=== PATIENT | female | born 1960 | race Caucasian/White ===

== ENCOUNTER → 2022-04-09 11:50 | Outpatient (BNVA) | payer OTHER, SELFPAY | PROVIDERS: PCP Registered Nurse; Visit Provider Registered Nurse | DX: I10 Essential (primary) hypertension (principal); E66.9 Obesity, unspecified; I73.9 Peripheral vascular disease, unspecified; Z76.89 Persons encountering health services in other specified circumstances | CPT/HCPCS: 80053; 80061; 85025 ==

== ENCOUNTER → 2022-10-05 08:21 | Outpatient (BNVA) | payer OTHER, SELFPAY | PROVIDERS: PCP Registered Nurse; Visit Provider Registered Nurse | DX: E55.9 Vitamin D deficiency, unspecified (principal); I10 Essential (primary) hypertension; E66.9 Obesity, unspecified; Z12.31 Encounter for screening mammogram for malignant neoplasm of breast; Z53.20 Procedure and treatment not carried out because of patient's decision for unspecified reasons | CPT/HCPCS: 80053; 80061; 82306; 85025 ==

== ENCOUNTER 2022-10-19 08:50 | Outpatient (CLI) | payer OTHER, SELFPAY ==
--- NOTE | 2022-10-19 09:09 | MM_ITS ---
WS: [id number] Bilateral screening 3D tomosynthesis digital mammogram, 10/30/2022 Clinical Data: Z12.31 - Encounter for screening mammogram for malignant ... Comparison: None. Findings: The breast parenchymal pattern shows heterogeneous density. No spiculated masses or clustered calcifi cations are seen. There are no secondary signs of carcinoma. Mole markers are on both breasts. MM/[place] [id number] Impression: 1. Negative bilateral mammogram with no prior exam for review. 2. Recommend annual screening mammograms. BIRADS: 1-Negative FOLLOW UP: 1 Year Follow-up The CAD loading checker was used.
== END 2022-10-19 08:51 | disposition home or self-care (01) ==
PROVIDERS: PCP Registered Nurse; Visit Provider Registered Nurse
DX: Z12.31 Encounter for screening mammogram for malignant neoplasm of breast (principal)
CPT/HCPCS: 77063; 77067

== ENCOUNTER 2022-11-15 13:06 | Outpatient (CLI) | payer OTHER, SELFPAY ==
--- NOTE | 2022-11-15 | US_ITS ---
WS: [id number] RIGHT 3D TOMOSYNTHESIS DIGITAL MAMMOGRAPHY WITH CAD CLINICAL INFORMATION: ABNORMAL MAMMO HISTORY: Abnormal mammogram COMPARISON: October 19, 2022 TECHNIQUE: 3 views of the right breast were obtained. FINDINGS: Scattered fibroglandular densities of the right breast. Again seen is the irregular spiculated focal asymmetric density upper outer RIGHT breast. Associated irregular margins with additional surrounding parenchymal densities and a few separate appearing small satellite nodules. Ultrasound described bel ow. ULTRASOUND BREAST RIGHT TECHNIQUE: Ultrasound right breast focused area of concern. CLINICAL INFORMATION: Abnormal mammo/ mass of calcs COMPARISON: October 19, 2022 FINDINGS: Ultrasound RIGHT breast 10:00 position 3 cm from the nipple. There is a spiculated hypoechoic lesion taller than wide. This measures approximately 1.1 x 0.7 x 1.6 cm suspicious for carcinoma. Irregular borders with adjacent smaller separate subcutaneous nodule measuring 3.0 x 4.4 x 2.4 mm. Recommend ul trasound guided biopsy both of these lesions. Ultrasound RIGHT axilla also examined. Numerous lymph nodes with normal fatty hilum. Single lymph nod e with distortion of the fatty hilum measuring 10 mm is probably normal but can be re-evaluated when patient returns for biopsy. No other suspicious lymphadenopathy. US/US breast RT limited* [id number] IMPRESSION: BI-RADS 4 suspicious FOLLOW UP: Recommend Ultrasound-guided biopsy. Recommend ultrasound-guided biopsy of the 2 lesions at the 10:00 position 3 cm from the nipple RIGHT breast Also recommend re-evaluation RIGHT axilla when patient returns for breast biops y.
--- NOTE | 2022-11-15 14:49 | MM_ITS ---
WS: [id number] RIGHT 3D TOMOSYNTHESIS DIGITAL MAMMOGRAPHY WITH CAD CLINICAL INFORMATION: ABNORMAL MAMMO HISTORY: Abnormal mammogram COMPARISON: October 19, 2022 TECHNIQUE: 3 views of the right breast were obtained. FINDINGS: Scattered fibroglandular densities of the right breast. Again seen is the irregular spiculated focal asymmetric density upper outer RIGHT breast. Associated irregular margins with additional surrounding parenchymal densities and a few separate appearing small satellite nodules. Ultrasound described bel ow. ULTRASOUND BREAST RIGHT TECHNIQUE: Ultrasound right breast focused area of concern. CLINICAL INFORMATION: Abnormal mammo/ mass of calcs COMPARISON: October 19, 2022 FINDINGS: Ultrasound RIGHT breast 10:00 position 3 cm from the nipple. There is a spiculated hypoechoic lesion taller than wide. This measures approximately 1.1 x 0.7 x 1.6 cm suspicious for carcinoma. Irregular borders with adjacent smaller separate subcutaneous nodule measuring 3.0 x 4.4 x 2.4 mm. Recommend ul trasound guided biopsy both of these lesions. Ultrasound RIGHT axilla also examined. Numerous lymph nodes with normal fatty hilum. Single lymph nod e with distortion of the fatty hilum measuring 10 mm is probably normal but can be re-evaluated when patient returns for biopsy. No other suspicious lymphadenopathy. MM/[place] [id number] IMPRESSION: BI-RADS 4 suspicious FOLLOW UP: Recommend Ultrasound-guided biopsy. Recommend ultrasound-guided biopsy of the 2 lesions at the 10:00 position 3 cm from the nipple RIGHT breast Also recommend re-evaluation RIGHT axilla when patient returns for breast biops y.
== END 2022-11-15 13:07 | disposition home or self-care (01) ==
LOC: RAD 13:08
PROVIDERS: PCP Registered Nurse; Visit Provider Registered Nurse
DX: R92.8 Other abnormal and inconclusive findings on diagnostic imaging of breast (principal); N63.11 Unspecified lump in the right breast, upper outer quadrant
CPT/HCPCS: 76642; 77061; G0279

== ENCOUNTER 2022-11-29 11:51 | Outpatient (CLI) | payer OTHER, SELFPAY ==
--- NOTE | 2022-11-29 | US_ITS ---
WS: [id number] ULTRASOUND-GUIDED RIGHT BREAST BIOPSY CLINICAL INFORMATION: N63.10 - Unspecified lump in the right breast, unspecifie... COMPARISON: November 15, 2022 FINDINGS: The procedure including risks, benefits, and complications were discussed with the patient who agreed to proceed. Using sterile technique patient was prepped and draped in the usual sterile fashion. Aft er 1% lidocaine utilizing real-time ultrasound guidance 5 14-gauge cores were obtained of the RIGHT b reast lesion at the 10 o'clock position. Subsequently a titanium clip was placed in the biopsy cavity . Subsequently additional biopsy was performed of a 2nd small solid satellite lesion at the 10:00 posit ion. 3 samples were obtained. Titanium clip was placed in the biopsy cavity. Next largest proximal lymph node was selected in the RIGHT axilla and 3 samples were obtained. Biopsy clip was placed in the biopsy cavity. Pathology demonstrates A. Breast, right, 10 o'clock, 3 cm from nipple, ultrasound-guided biopsy: - Poorly differentiated invasive ductal carcinoma. - Renae Hastings grade 3 (score 9). - Breast profile has been performed and will be reported separately. B. Breast, right, 10 o'clock, 3 cm from nipple #2, ultrasound-guided biopsy: - Invasive ductal carcinoma. - Renae Hastings grade 2 (score 7). - Breast profile has been performed and will be reported separately. C. Lymph node, right axilla , ultrasound-guided biopsy: - Negative for malignancy. US/[place] [id number] IMPRESSION: 1. Uncomplicated ultrasound-guided RIGHT breast biopsy and axillary biopsy. 2. The pathology demonstrates POORLY DIFFERENTIATED INVASIVE DUCTAL CARCINOMA corresponding to the primary lesion and satellite lesion at the 10:00 position 3 cm from the nipple. 3. RIGHT axillary lymph node biopsy is negative for malignancy. 4. Recommend BREAST SURGERY consultation in further evaluation. BI-RADS: 6-Known Biopsy-Proven Malignancy FOLLOW UP: Surgical Biopsy Recommended
--- NOTE | 2022-11-29 12:30 | US_ITS ---
WS: [id number] ULTRASOUND-GUIDED RIGHT BREAST BIOPSY CLINICAL INFORMATION: N63.10 - Unspecified lump in the right breast, unspecifie... COMPARISON: November 15, 2022 FINDINGS: The procedure including risks, benefits, and complications were discussed with the patient who agreed to proceed. Using sterile technique patient was prepped and draped in the usual sterile fashion. Aft er 1% lidocaine utilizing real-time ultrasound guidance 5 14-gauge cores were obtained of the RIGHT b reast lesion at the 10 o'clock position. Subsequently a titanium clip was placed in the biopsy cavity . Subsequently additional biopsy was performed of a 2nd small solid satellite lesion at the 10:00 posit ion. 3 samples were obtained. Titanium clip was placed in the biopsy cavity. Next largest proximal lymph node was selected in the RIGHT axilla and 3 samples were obtained. Biopsy clip was placed in the biopsy cavity. Pathology demonstrates A. Breast, right, 10 o'clock, 3 cm from nipple, ultrasound-guided biopsy: - Poorly differentiated invasive ductal carcinoma. - Renae Hastings grade 3 (score 9). - Breast profile has been performed and will be reported separately. B. Breast, right, 10 o'clock, 3 cm from nipple #2, ultrasound-guided biopsy: - Invasive ductal carcinoma. - Renae Hastings grade 2 (score 7). - Breast profile has been performed and will be reported separately. C. Lymph node, right axilla , ultrasound-guided biopsy: - Negative for malignancy. US/[place] [id number] IMPRESSION: 1. Uncomplicated ultrasound-guided RIGHT breast biopsy and axillary biopsy. 2. The pathology demonstrates POORLY DIFFERENTIATED INVASIVE DUCTAL CARCINOMA corresponding to the primary lesion and satellite lesion at the 10:00 position 3 cm from the nipple. 3. RIGHT axillary lymph node biopsy is negative for malignancy. 4. Recommend BREAST SURGERY consultation in further evaluation. BI-RADS: 6-Known Biopsy-Proven Malignancy FOLLOW UP: Surgical Biopsy Recommended
[2022-11-30 15:25] LABS: Lymphoma Profile (BBPL) See Report
[2022-12-05 06:08] LABS: Breast Profile ER,PR,HER2,Ki-6 See Report
== END 2022-11-29 11:52 | disposition home or self-care (01) ==
PROVIDERS: PCP Registered Nurse; Visit Provider Registered Nurse
DX: C50.411 Malignant neoplasm of upper-outer quadrant of right female breast (principal); R59.0 Localized enlarged lymph nodes
CPT/HCPCS: 19083; 19084; 38505; 76942; 88184; 88185; 88305; 88361; 88374

== ENCOUNTER → 2022-12-03 15:48 | Outpatient (BNVA) | payer OTHER, SELFPAY | PROVIDERS: PCP Registered Nurse; Visit Provider Registered Nurse | DX: N39.0 Urinary tract infection, site not specified (principal); D05.11 Intraductal carcinoma in situ of right breast | CPT/HCPCS: 81000; 87086 ==

== ENCOUNTER 2022-12-24 15:39 | Oncology outpatient (recurring) (ONCR) | payer OTHER, SELFPAY ==
[2022-12-24 17:00] LABS: Bilirubin Urine Neg (Negative); Blood Urine Neg (Negative); Glucose Urine UA Norm (Normal); Ketones Urine Negative (Negative); Leukocyte Esterase Urine 2+ (Negative); Nitrate Urine Negative (Negative); Protein Urine Neg (Negative); Urine Appearance Hazy (CLEAR); Urine Color Yellow (Yellow); Urobilinogen Urine Norm (Negative); pH Urine 5 (5-7)
[2022-12-24 17:01] LABS: Add Urine Culture? Yes; Bacteria Urine 1+ /hpf; Transitional Epi Cells Urine 0-4 /hpf; WBC Urine 25-40 /hpf (0-5)
== END 2023-01-09 23:59 | disposition home or self-care (01) ==
PROVIDERS: PCP Registered Nurse; Visit Provider Internal Medicine Medical Oncology
DX: Z17.0 Estrogen receptor positive status [ER+]; C50.811 Malignant neoplasm of overlapping sites of right female breast; R30.0 Dysuria; Z79.2 Long term (current) use of antibiotics
CPT/HCPCS: 81001; 87077; 87086; 87186; 99205

== ENCOUNTER → 2023-02-05 12:08 | Day surgery (SDC) | payer OTHER, SELFPAY ==
--- NOTE | 2023-02-05 11:40 | XR_ITS ---
WS: [id number] Exam: XR chest 1V portable [id number] Date/Time of Exam: 02/05/2023 12:56 PM Reason For Exam: Post PICC insertion No priors. A right-sided PICC line has been placed and appears to end in the lower one third of the SVC. The abraham gs are bilaterally clear. Normal cardiomediastinal silhouette. Degenerative change and dextroscoliosi s of the T-spine. No pleural effusions. XR/XR chest 1V portable [id number] IMPRESSION: 1. Right-sided PICC line appears to end in the lower one third of the SVC. 2. No acute cardiopulmonary finding.
[2023-02-05 13:23] LABS: Basophils # 0.1 10^3/uL (0.0-0.1); Eosinophils # 0.2 10^3/uL (0.0-0.8); Eosinophils % 1.8 %; Hematocrit 43.7 % (37.0-47.0); Hemoglobin 14.7 g/dL (11.5-15.3); Mean Corpuscular HGB Conc 33.6 g/dL (30.0-36.0); Mean Corpuscular Hemoglobin 31.9 pg (28.0-34.0); Mean Corpuscular Volume 94.8 fl (81-99); Mean Platelet Volume 10.8 fL (7.4-10.4); Monocytes % 10.7 %; Neutrophils # 4.06 10^3/uL (1.8-7.7); Neutrophils % 43.2 %; Nucleated Red Blood Cells % 0 %; Platelet Count 199 10^3/cmm (130-400); Red Blood Count 4.61 10^6/uL (4.1-5.3); Red Cell Distribution Width 12.8 % (12.1-15.1); White Blood Count 9.4 10^3/uL (4.0-10.0)
[2023-02-05 13:29] VITALS: BP 125/102; PULSE 78; RESP 18; TEMP 36.8; O2SAT 96
--- NOTE | 2023-02-05 13:29 | PC.NURSE ---
Pt referral from oncology for PICC line placement for chemotherapy. Double lumen PICC placed to right basilic vein without difficulty. Mid-arm circumference measured 10 cm from right AC 42 cm. Trimmed cath length 49 cm with 1 cm external length noted. Line secured with stat lock. Insertion site covered with gauze and TSM. CXR shows tip in distal third of SVC, in good position for use per radiologist. Pt scheduled tomorrow at oncology for PICC dressing change. Report given to MAXIMILIAN Saab.
== END ==
PROVIDERS: PCP Registered Nurse; Visit Provider Internal Medicine Medical Oncology
DX: C50.411 Malignant neoplasm of upper-outer quadrant of right female breast (principal)
CPT/HCPCS: 36569; 36592; 71045; 85025

== ENCOUNTER 2023-02-07 13:31 | Outpatient (CLI) | payer OTHER, SELFPAY ==
--- NOTE | 2023-02-07 14:00 | USCV_ITS ---
Fanny Will Age: 62 Gender: F : 1960 Exam Date: 02/07/2023 14:09 Ordering Phys: Alfonso Orosco MD Technologist: ELVIA [place]am Location[place] [facility] [place]ication: HIGH RISK MEDS BP: 122 / 81 HR: 79 Rhythm: Sinus Technical Quality: Adequate MEASUREMENTS (Male / Female) Normal Values 2D ECHO LVOT Diameter 2.0 cm LV Ejection Fraction MOD 2C 56.5 % LV Ejection Fraction 2C AL 56.3 % LA Diameter 3.3 cm LA Width 2.9 cm LA Height 4.0 cm RA Width 2.2 cm RA Height 4.4 cm Aorta at Sinotubular Diameter 2.4 cm IVC Diameter 1.6 cm M-MODE Aortic Annulus Diameter 2.6 cm LA Ao Ratio MM 1.2 MV E Point Septal Separation 0.4 cm DOPPLER Right Atrial Pressure 3.0 mmHg FINDINGS Left Ventricle Right Ventricle Right Atrium Left Atrium Mitral Valve Aortic Valve Tricuspid Valve Pulmonic Valve Pericardium Aorta IVC CONCLUSIONS Left ventricle is normal in size. LV systolic function is normal with EF of 55 to 60%. No regional wall motion abnormalities. No comparison studies are available Osmel Mendes MD (Electronically Signed) Final Date: 08 February 2023 13:57 S
== END 2023-02-07 13:32 | disposition home or self-care (01) ==
LOC: RAD 13:33
PROVIDERS: PCP Registered Nurse; Visit Provider Internal Medicine Medical Oncology
DX: Z79.899 Other long term (current) drug therapy (principal)
CPT/HCPCS: 93308

== ENCOUNTER 2023-02-08 07:30 | Oncology outpatient (recurring) (ONCR) | payer OTHER, SELFPAY ==
[2023-02-06 12:40] VITALS: BP 116/79; PULSE 82; RESP 18; TEMP 37; O2SAT 96
[2023-02-06 13:16] LABS: Basophils # 0.1 10^3/uL (0.0-0.1); Eosinophils # 0.2 10^3/uL (0.0-0.8); Eosinophils % 1.8 %; Hematocrit 46.7 % (37.0-47.0); Hemoglobin 15.8 g/dL (11.5-15.3); Lymphocytes # 3.7 10^3/uL (0.8-4.8); Lymphocytes % 40.1 %; Mean Corpuscular HGB Conc 33.8 g/dL (30.0-36.0); Mean Corpuscular Hemoglobin 32.6 pg (28.0-34.0); Mean Corpuscular Volume 96.3 fl (81-99); Mean Platelet Volume 10.6 fL (7.4-10.4); Monocytes # 0.8 10^3/uL (0.2-0.9); Monocytes % 8.9 %; Neutrophils # 4.45 10^3/uL (1.8-7.7); Neutrophils % 47.8 %; Nucleated Red Blood Cells % 0 %; Platelet Count 203 10^3/cmm (130-400); Red Blood Count 4.85 10^6/uL (4.1-5.3); Red Cell Distribution Width 12.9 % (12.1-15.1); White Blood Count 9.3 10^3/uL (4.0-10.0)
[2023-02-06 13:35] LABS: Alanine Aminotransferase 31 U/L (0-33); Albumin Level 3.7 g/dL (3.5-5.2); Alkaline Phosphatase 70 U/L (35-105); Blood Urea Nitrogen 15 mg/dL (8-23); Calcium 9.3 mg/dL (8.5-10.5); Carbon Dioxide 25 mmol/L (22-29); Chloride 100 mmol/L (98-107); Globulin 3.3 g/dL (1.3-4.6); Glomerular Filtration Rate 72.7 mL/min (90-130); Glucose 102 mg/dL (65-115); Osmolality Calculated 281 mOsm/kg (285-295); Sodium 135 mmol/L (136-145); Total Bilirubin 0.4 mg/dL (0.15-1.2)
[2023-02-06 13:58] LABS: Anion Gap 14.4 (5-19); Aspartate Amino Transferase 30 U/L (0-32); Potassium 4.4 mmol/L (3.5-5.1)
[2023-02-08 07:20] VITALS: BP 127/83; PULSE 82; RESP 18; TEMP 36.3; O2SAT 98
[2023-02-08] MEDS: sodium chloride 0.9% 250 ML 100 ML IV (09:20)
[2023-02-08] MEDS: OLANZapine 5 mg TABLET PO (09:22)
[2023-02-08] MEDS: palonosetron 0.25 mg/5 mL SDV IVP (09:22)
[2023-02-08] MEDS: fosaprepitant 150 MG in sodium chloride 0.9% 150 ML 300 MG IV (09:26)
[2023-02-08] MEDS: DOXOrubicin 2 mg/ml MDV 134 MG IVP (10:41)
[2023-02-08] MEDS: pegfilgrastim 6 mg/0.6 mL Kit (onpro) SUBCUT (12:24)
[2023-02-08 12:30] VITALS: BP 97/59; PULSE 71; TEMP 36.7; O2SAT 97
== END 2023-02-08 23:59 | disposition home or self-care (01) ==
PROVIDERS: PCP Registered Nurse; Visit Provider Internal Medicine Medical Oncology
DX: C50.811 Malignant neoplasm of overlapping sites of right female breast (principal); Z17.0 Estrogen receptor positive status [ER+]; R11.0 Nausea; Z79.899 Other long term (current) drug therapy; Z51.12 Encounter for antineoplastic immunotherapy; Z51.11 Encounter for antineoplastic chemotherapy
CPT/HCPCS: 36592; 80053; 85025; 96361; 96367; 96375; 96377; 96411; 96413; 99215; J1100; J1453; J1642; J2469; J2506; J7040; J7050; J9000; J9070

== ENCOUNTER 2023-02-17 13:31 | Emergency (ER) | payer OTHER, SELFPAY ==
[2023-02-17 13:34] VITALS: BP 121/79; PULSE 90; RESP 14; TEMP 36.9; O2SAT 96
--- NOTE | 2023-02-17 15:16 | W.ED.GENADLT ---
HPI - General Adult General: Chief complaint: General Medical Stated complaint: picc line filling with blood Time Seen by Provider: 02/17/23 14:46 Source: patient Mode of arrival: ambulatory Limitations: no limitations History of Present Illness: This 62-year-old female presents to the ER for evaluation after she noticed some blood around the entry site of her PICC line. She has had the PICC line for about 2 weeks and received her first round of chemotherapy over a week ago. 2 days ago blood was drawn from the PICC line. She has no fever and there is no redness or swelling around the entry site of the PICC line. She denies trauma or a pull on the PICC line. She came to the ER to make sure that everything is fine with the PICC line. Associated symptoms: Deny chest pain or headache(s) Review of Systems Const: Denies: chills, body aches or change in appetite Eyes: Denies: change in vision or eye discharge ENMT: Denies: throat pain, dental pain or nasal discharge Card: Denies: chest pain or lightheadedness : Denies: dysuria Musc: Denies: neck pain or back pain Skin/Breast: Reports: other (Blood around the entry site of the PICC line.) Neuro: Denies: headache(s) or weakness in extremities Psych: Denies: depression Romero/Lymph: Denies: easy bruising All/Imm: Denies: urticaria, tongue swelling or facial swelling PFSH ED PFSH: Medical History History of recurrent urinary tract infection Hypertension Left sided sciatica Vitamin D deficiency Surgical History H/O right breast biopsy (11/29/22) History of section History of tonsillectomy Status post right breast lumpectomy (01/02/23) Right breast lumpectomy with axillary sentinel lymph node biopsy Family History Father Cancer Mother Diabetes CHF (congestive heart failure) Hypertension Social History Smoking and tobacco status: never smoked Alcohol intake: never Substance/Drug Use: never Adopted: No Caregiver/support person: No Lives independently: No Household members: spouse Marital status: service: No Current occupational status: retired Sexually active: Yes Do you think of yourself as: Straight/Heterosexual Current gender identity: Female Physical Exam Const: COMMON NORMALS: no acute distress, patient oriented x3, no limitations and alert HENMT: COMMON NORMALS: normocephalic HEAD & SCALP: normocephalic Eye: COMMON NORMALS: EOMs intact bilaterally Neck/C-Spine: COMMON NORMALS: full ROM and supple Chest: COMMONS NORMALS: normal inspection of the chest Resp: COMMON NORMALS: normal respiratory effort, No retractions, No use of accessory muscles and clear to auscultation bilaterally AUSCULTATION: clear to auscultation bilaterally Cardio: COMMON NORMALS: regular rate, regular rhythm and No murmurs present (Cardio) RATE: regular rate RHYTHM: regular rhythm GI: COMMON NORMALS: Normal to inspection, nondistended, normoactive bowel sounds present and non-tender : COMMON NORMALS: Yes no CVA tenderness BLADDER/KIDNEY EXAM: Yes no CVA tenderness Back/Pelvis: COMMON NORMALS: no CVA tenderness and no thoracic nor lumbar tenderness Extremity: GENERAL: Yes normal exam except as noted EXTREMITY IMAGE (FRONT): 1. Dried blood around the entry site of the PICC line. No active bleeding. No redness, swelling or tenderness to suggest an active infection. Neuro: COMMON NORMALS: patient oriented x3 and no focal motor deficits SENSORIUM/ORIENTATION: Yes alert Psych: COMMON NORMALS: mental status grossly normal and cooperative Course Vital Signs: Vital signs: Vital Signs Temperature 98.4 F 02/17/23 13:34 Pulse Rate 90 02/17/23 13:34 Respiratory Rate 14 02/17/23 13:34 Blood Pressure 121/79 02/17/23 13:34 Pulse Oximetry 96 02/17/23 13:34 Oxygen Delivery Me thod Room Air 02/17/23 13:34 MDM - General Adult Medical Decision Making Medical decision making: Patient is concerned when she noticed blood around the entry site of the PICC line. She wanted to make sure that everything was okay with the PICC line. In the absence of active bleeding or signs of infection, I reassured patient that it was best not to tamper with the PICC line but rather to contact her oncologist and PICC line team tomorrow to address her concerns. She was advised to return if she develops redness, swelling, fever or any signs of infection. Patient verbalized understanding and agrees with the plan. Discharge Plan Discharge Patient Disposition: Home Clinical Impression: Bleeding from PICC line Condition: Stable Prescriptions: No Action prochlorperazine maleate [Compazine] 10 mg tablet 10 mg PO Q4H PRN (Reason: Mild Nausea) Qty: 30 3RF lorazepam 1 mg tablet 0.5 - 1 mg PO Q6H PRN (Reason: Severe Nausea) Qty: 30 3RF ciprofloxacin HCl 500 mg tablet 500 mg PO BID Qty: 20 0RF Rx Instructions: To use for skin infection famotidine 20 mg tablet 20 mg PO BID 42 Days Qty: 84 0RF amlodipine 5 mg tablet 5 mg PO DAILY 90 Days Qty: 90 4RF cyclobenzaprine 10 mg tablet 10 mg PO ONCE PRN (Reason: sciatica pain) 90 Days Qty: 90 4RF hydrochlorothiazide 25 mg tablet 25 mg PO DAILY 90 Days Qty: 90 4RF cholecalciferol (vitamin D3) 1,250 mcg (50,000 unit) capsule 1,250 mcg PO .weekly 90 Days Qty: 12 1RF Discharge Orders: Discharge ED (Routine); Ordered 02/17/23 Ordered By: Wiliam Stubbs Referrals: Ruel Howard FNP [Primary Care Provider] - Discharge Diet: Usual diet Discharge Activity: Resume usual activity Patient Instructions: Opioid Safety, Pain Management Activity Restrictions/Additional Instructions: Currently, there is no sign of active bleeding or infectionat your PICC line. Contact your oncologist and PICC line team tomorrow to address your concerns. Return if you notice redness, swelling or increased pain around the PICC line site. Also return if you develop fever with temperature of 100.4 or more. Coding Level of Care Code ED Compliance Clerk for Laisha Hoskins
== END 2023-02-17 15:26 | disposition home or self-care (01) ==
PROVIDERS: Emergency Provider Family Medicine; PCP Registered Nurse
DX: T82.838A Hemorrhage due to vascular prosthetic devices, implants and grafts, initial encounter (principal); Y83.2 Surgical operation with anastomosis, bypass or graft as the cause of abnormal reaction of the patient, or of later complication, without mention of misadventure at the time of the procedure
CPT/HCPCS: 99282

== ENCOUNTER 2023-03-07 08:00 | Oncology outpatient (recurring) (ONCR) | payer OTHER, SELFPAY ==
[2023-02-15 08:04] VITALS: BP 137/94; PULSE 88; RESP 18; TEMP 36.8; O2SAT 97
[2023-02-15 08:19] LABS: Basophils # 0.1 10^3/uL (0.0-0.1); Basophils % 2.5 %; Eosinophils # 0.1 10^3/uL (0.0-0.8); Eosinophils % 3.5 %; Hematocrit 44.4 % (37.0-47.0); Hemoglobin 14.9 g/dL (11.5-15.3); Lymphocytes # 1.5 10^3/uL (0.8-4.8); Lymphocytes % 72.3 %; Mean Corpuscular HGB Conc 33.6 g/dL (30.0-36.0); Mean Corpuscular Volume 95.5 fl (81-99); Mean Platelet Volume 10.5 fL (7.4-10.4); Monocytes # 0.1 10^3/uL (0.2-0.9); Neutrophils % 16.7 %; Nucleated Red Blood Cells % 0 %; Platelet Count 91 10^3/cmm (130-400); Red Blood Count 4.65 10^6/uL (4.1-5.3); Red Cell Distribution Width 12.5 % (12.1-15.1)
[2023-02-15 08:42] LABS: Alanine Aminotransferase 26 U/L (0-33); Albumin Level 3.7 g/dL (3.5-5.2); Alkaline Phosphatase 97 U/L (35-105); Blood Urea Nitrogen 20 mg/dL (8-23); Calcium 9.9 mg/dL (8.5-10.5); Carbon Dioxide 25 mmol/L (22-29); Chloride 98 mmol/L (98-107); Globulin 3.2 g/dL (1.3-4.6); Glomerular Filtration Rate 84.8 mL/min (90-130); Glucose 116 mg/dL (65-115); Osmolality Calculated 280 mOsm/kg (285-295); Sodium 133 mmol/L (136-145); Total Bilirubin 0.8 mg/dL (0.15-1.2); Total Protein 6.9 g/dL (6.6-8.7)
[2023-02-15 08:50] LABS: Aspartate Amino Transferase 24 U/L (0-32)
[2023-02-15 09:09] LABS: Neutrophils # 0.34 10^3/uL (1.8-7.7); Slide Review Slide Review Perform
[2023-02-21 08:38] VITALS: BP 125/92; PULSE 85; RESP 18; TEMP 36.7; O2SAT 98
[2023-02-21 09:03] LABS: Hematocrit 43.2 % (37.0-47.0); Hemoglobin 14.3 g/dL (11.5-15.3); Mean Corpuscular HGB Conc 33.1 g/dL (30.0-36.0); Mean Corpuscular Hemoglobin 32.1 pg (28.0-34.0); Mean Corpuscular Volume 97.1 fl (81-99); Mean Platelet Volume 9.9 fL (7.4-10.4); Platelet Count 278 10^3/cmm (130-400); Red Blood Count 4.45 10^6/uL (4.1-5.3); Red Cell Distribution Width 12.8 % (12.1-15.1); White Blood Count 9.5 10^3/uL (4.0-10.0)
[2023-02-21 09:05] LABS: Slide Review Slide Review Perform
[2023-02-21 09:06] LABS: Absolute Segmented Neutrophil 7.6 10/cmm (1.6-7.1); Band Neutrophils Absolute 0.2 10^3/cmm (0.0-1.2); Blastocytes 0 % (0-0); Eosinophils 1 %; Lymphocytes 9 %; Lymphocytes Absolute 0.9 10^3/cmm (1.2-3.4); Monocytes Absolute 0.4 10^3/cmm (0.1-0.6); Segmented Neutrophils 80 %; Total Cells Counted 100 (0-100)
[2023-02-21 09:07] LABS: Absolute Neutrophil 7.8 10^3/cmm (1.4-6.5); Giant Platelets Trace; Macrocytosis 1+; Platelet Estimate Normal (Normal); Polychromasia 1+
[2023-02-21 09:25] LABS: Alanine Aminotransferase 23 U/L (0-33); Albumin Level 3.5 g/dL (3.5-5.2); Alkaline Phosphatase 87 U/L (35-105); Blood Urea Nitrogen 12 mg/dL (8-23); Calcium 9.2 mg/dL (8.5-10.5); Carbon Dioxide 24 mmol/L (22-29); Chloride 103 mmol/L (98-107); Globulin 3.2 g/dL (1.3-4.6); Glomerular Filtration Rate 84.5 mL/min (90-130); Glucose 130 mg/dL (65-115); Osmolality Calculated 288 mOsm/kg (285-295); Sodium 138 mmol/L (136-145); Total Bilirubin 0.2 mg/dL (0.15-1.2); Total Protein 6.7 g/dL (6.6-8.7)
[2023-02-21 09:27] LABS: Anion Gap 15.4 (5-19); Potassium 4.4 mmol/L (3.5-5.1)
[2023-02-21 09:43] LABS: Aspartate Amino Transferase 24 U/L (0-32)
[2023-02-21 11:20] LABS: Add Urine Microscopic? YES; Bilirubin Urine Neg (Negative); Blood Urine Neg (Negative); Glucose Urine UA Norm (Normal); Ketones Urine Negative (Negative); Leukocyte Esterase Urine Negative (Negative); Nitrate Urine Negative (Negative); Protein Urine Neg (Negative); Sulfosalicylic Acid Urine Negative (Negative); Urine Appearance SL Hazy (CLEAR); Urine Color Yellow (Yellow); Urobilinogen Urine Norm (Negative); pH Urine 8 (5-7)
[2023-02-21 11:21] LABS: Add Urine Culture? No; Mucus Urine 1+ /hpf; RBC Urine 0-4 /hpf (0-2); Squamous Epithelial Cell Urine 0-4 /hpf (0-5); WBC Urine 0-4 /hpf (0-5)
[2023-02-21] MEDS: sodium chloride 0.9% 250 ML 75 ML IV ×2 (11:54→13:52)
[2023-02-21] MEDS: OLANZapine 5 mg TABLET PO (11:55)
[2023-02-21] MEDS: palonosetron 0.25 mg/5 mL SDV IVP (11:55)
[2023-02-21] MEDS: fosaprepitant 150 MG in sodium chloride 0.9% 150 ML 300 MG IV (12:28)
[2023-02-21] MEDS: DOXOrubicin 2 mg/ml MDV 134 MG IVP (13:31)
[2023-02-21 15:35] VITALS: BP 108/71; PULSE 95; RESP 18; TEMP 36; O2SAT 95
[2023-02-21] MEDS: pegfilgrastim 6 mg/0.6 mL Kit (onpro) SUBCUT (18:24)
[2023-02-28 08:12] VITALS: BMI 36.8
[2023-02-28 08:13] VITALS: BP 139/86; PULSE 84; RESP 18; TEMP 36.2; O2SAT 97
[2023-02-28 08:25] LABS: Hematocrit 40.6 % (37.0-47.0); Hemoglobin 13.9 g/dL (11.5-15.3); Mean Corpuscular HGB Conc 34.2 g/dL (30.0-36.0); Mean Corpuscular Hemoglobin 33.2 pg (28.0-34.0); Mean Corpuscular Volume 96.9 fl (81-99); Mean Platelet Volume 9.8 fL (7.4-10.4); Platelet Count 208 10^3/cmm (130-400); Red Blood Count 4.19 10^6/uL (4.1-5.3); Red Cell Distribution Width 12.5 % (12.1-15.1); White Blood Count 2.7 10^3/uL (4.0-10.0)
[2023-02-28 08:44] LABS: Alanine Aminotransferase 19 U/L (0-33); Albumin Level 3.6 g/dL (3.5-5.2); Alkaline Phosphatase 66 U/L (35-105); Blood Urea Nitrogen 18 mg/dL (8-23); Calcium 8.8 mg/dL (8.5-10.5); Carbon Dioxide 27 mmol/L (22-29); Chloride 100 mmol/L (98-107); Globulin 2.9 g/dL (1.3-4.6); Glomerular Filtration Rate 84.5 mL/min (90-130); Glucose 137 mg/dL (65-115); Osmolality Calculated 288 mOsm/kg (285-295); Sodium 137 mmol/L (136-145); Total Bilirubin 0.9 mg/dL (0.15-1.2); Total Protein 6.5 g/dL (6.6-8.7)
[2023-02-28 08:52] LABS: Anion Gap 14.6 (5-19); Aspartate Amino Transferase 23 U/L (0-32); Potassium 4.6 mmol/L (3.5-5.1)
[2023-02-28 09:06] LABS: Slide Review Slide Review Perform
[2023-02-28 09:07] LABS: Absolute Segmented Neutrophil 1.1 10/cmm (1.6-7.1); Lymphocytes 30 %; Segmented Neutrophils 40 %; Total Cells Counted 50 (0-100)
[2023-02-28 09:08] LABS: Absolute Neutrophil 1.1 10^3/cmm (1.4-6.5); Eosinophils 0 %; Giant Platelets Trace; Lymphocytes Absolute 1.6 10^3/cmm (1.2-3.4); Macrocytosis 1+; Monocytes Absolute 0.1 10^3/cmm (0.1-0.6); Platelet Estimate Decreased (Normal)
[2023-03-07 07:33] VITALS: BMI 37.2
[2023-03-07 07:34] VITALS: PULSE 89; RESP 18; TEMP 36.7; O2SAT 97
[2023-03-07 07:51] LABS: Basophils # 0.1 10^3/uL (0.0-0.1); Eosinophils % 0.3 %; Hematocrit 39.3 % (37.0-47.0); Hemoglobin 12.9 g/dL (11.5-15.3); Lymphocytes # 1.9 10^3/uL (0.8-4.8); Lymphocytes % 55.6 %; Mean Corpuscular HGB Conc 32.8 g/dL (30.0-36.0); Mean Corpuscular Volume 97.5 fl (81-99); Mean Platelet Volume 9.8 fL (7.4-10.4); Monocytes % 28.1 %; Nucleated Red Blood Cells % 1.2 %; Platelet Count 284 10^3/cmm (130-400); Red Blood Count 4.03 10^6/uL (4.1-5.3); Red Cell Distribution Width 13.5 % (12.1-15.1); White Blood Count 3.4 10^3/uL (4.0-10.0)
[2023-03-07 08:59] LABS: Neutrophils # 0.27 10^3/uL (1.8-7.7)
[2023-03-07] MEDS: sodium chloride 0.9% 250 ML 75 ML IV (10:11)
[2023-03-07] MEDS: palonosetron 0.25 mg/5 mL SDV IVP (10:12)
[2023-03-07] MEDS: OLANZapine 5 mg TABLET PO (10:12)
[2023-03-07 10:13] VITALS: BP 113/73; PULSE 74; RESP 18; TEMP 36.6; O2SAT 98
[2023-03-07] MEDS: fosaprepitant 150 MG in sodium chloride 0.9% 150 ML 300 MG IV (10:33)
[2023-03-07] MEDS: DOXOrubicin 2 mg/ml MDV 134 MG IVP (11:15)
[2023-03-07 13:50] VITALS: BP 93/58; PULSE 77; RESP 18; TEMP 36.4; O2SAT 96
[2023-03-07] MEDS: pegfilgrastim 6 mg/0.6 mL Kit (onpro) SUBCUT (14:05)
== END 2023-03-07 23:59 | disposition home or self-care (01) ==
PROVIDERS: Nurse Practitioner Family; PCP Registered Nurse; Visit Provider Internal Medicine Medical Oncology
DX: Z51.11 Encounter for antineoplastic chemotherapy (principal); C50.411 Malignant neoplasm of upper-outer quadrant of right female breast
CPT/HCPCS: 36592; 80053; 81001; 85007; 85025; 96361; 96367; 96372; 96375; 96377; 96409; 96411; 96413; 99214; J1100; J1453; J1642; J2469; J2506; J7040; J7050; J9000; J9070

== ENCOUNTER 2023-04-10 08:30 | Oncology outpatient (recurring) (ONCR) | payer OTHER, SELFPAY ==
[2023-03-14 07:48] VITALS: BP 101/70; PULSE 95; TEMP 36.2; O2SAT 97
[2023-03-14 08:11] LABS: Basophils # 0.1 10^3/uL (0.0-0.1); Basophils % 7.6 %; Hematocrit 38.2 % (37.0-47.0); Hemoglobin 12.9 g/dL (11.5-15.3); Lymphocytes # 0.8 10^3/uL (0.8-4.8); Lymphocytes % 46.8 %; Mean Corpuscular HGB Conc 33.8 g/dL (30.0-36.0); Mean Corpuscular Hemoglobin 32.7 pg (28.0-34.0); Mean Platelet Volume 10.5 fL (7.4-10.4); Monocytes % 2.3 %; Neutrophils % 35.7 %; Nucleated Red Blood Cells % 0 %; Platelet Count 148 10^3/cmm (130-400); Red Blood Count 3.94 10^6/uL (4.1-5.3); White Blood Count 1.7 10^3/uL (4.0-10.0)
[2023-03-14 08:37] LABS: Alanine Aminotransferase 56 U/L (0-33); Albumin Level 3.6 g/dL (3.5-5.2); Alkaline Phosphatase 67 U/L (35-105); Anion Gap 16.8 (5-19); Aspartate Amino Transferase 34 U/L (0-32); Blood Urea Nitrogen 18 mg/dL (8-23); Carbon Dioxide 25 mmol/L (22-29); Chloride 99 mmol/L (98-107); Globulin 2.9 g/dL (1.3-4.6); Glomerular Filtration Rate 63.2 mL/min (90-130); Glucose 145 mg/dL (65-115); Osmolality Calculated 288 mOsm/kg (285-295); Potassium 3.8 mmol/L (3.5-5.1); Sodium 137 mmol/L (136-145); Total Bilirubin 0.9 mg/dL (0.15-1.2); Total Protein 6.5 g/dL (6.6-8.7)
[2023-03-14 08:51] LABS: Neutrophils # 0.61 10^3/uL (1.8-7.7); Slide Review Slide Review Perform
[2023-03-18 09:43] VITALS: BP 123/72; PULSE 90; RESP 17; TEMP 36.6; O2SAT 94; BMI 37.2
[2023-03-18 09:45] LABS: Basophils # 0.1 10^3/uL (0.0-0.1); Basophils % 6.3 %; Eosinophils % 0.5 %; Hematocrit 36.9 % (37.0-47.0); Hemoglobin 12.4 g/dL (11.5-15.3); Lymphocytes # 1.1 10^3/uL (0.8-4.8); Lymphocytes % 57.3 %; Mean Corpuscular HGB Conc 33.6 g/dL (30.0-36.0); Mean Corpuscular Hemoglobin 32.1 pg (28.0-34.0); Mean Corpuscular Volume 95.6 fl (81-99); Mean Platelet Volume 10.5 fL (7.4-10.4); Monocytes # 0.6 10^3/uL (0.2-0.9); Monocytes % 31.3 %; Nucleated Red Blood Cells % 0 %; Platelet Count 145 10^3/cmm (130-400); Red Blood Count 3.86 10^6/uL (4.1-5.3); Red Cell Distribution Width 13.1 % (12.1-15.1); White Blood Count 1.9 10^3/uL (4.0-10.0)
[2023-03-18 09:51] LABS: Neutrophils # 0.04 10^3/uL (1.8-7.7)
[2023-03-18 10:13] LABS: Alanine Aminotransferase 29 U/L (0-33); Albumin Level 3.6 g/dL (3.5-5.2); Alkaline Phosphatase 69 U/L (35-105); Aspartate Amino Transferase 22 U/L (0-32); Blood Urea Nitrogen 15 mg/dL (8-23); Calcium 8.9 mg/dL (8.5-10.5); Carbon Dioxide 24 mmol/L (22-29); Chloride 100 mmol/L (98-107); Globulin 3.2 g/dL (1.3-4.6); Glucose 132 mg/dL (65-115); Osmolality Calculated 287 mOsm/kg (285-295); Sodium 137 mmol/L (136-145); Total Bilirubin 0.3 mg/dL (0.15-1.2); Total Protein 6.8 g/dL (6.6-8.7)
[2023-03-18 10:15] LABS: Anion Gap 16.7 (5-19); Potassium 3.7 mmol/L (3.5-5.1)
[2023-03-18] MEDS: sodium chloride 0.9% 1,000 ML 999 ML IV (10:53)
[2023-03-18] MEDS: levofloxacin-dextrose 5 % 750 MG/150 ML PREMIX 100 MG IV (10:53)
[2023-03-18 12:34] VITALS: BP 117/66; PULSE 80; TEMP 36.2; O2SAT 99
[2023-03-19 08:09] VITALS: BP 119/77; PULSE 83; RESP 17; TEMP 36.6; O2SAT 97; BMI 37.3
[2023-03-19] MEDS: sodium chloride 0.9% 1,000 ML 733 ML IV (08:39)
[2023-03-19] MEDS: levofloxacin-dextrose 5 % 750 MG/150 ML PREMIX 100 MG IV (08:40)
[2023-03-19 10:20] VITALS: BP 101/61; PULSE 92; RESP 17; TEMP 35.7; O2SAT 97
[2023-03-20 07:34] VITALS: BP 117/77; PULSE 86; RESP 18; TEMP 35.9; O2SAT 100; BMI 36.8
[2023-03-20 08:00] LABS: Basophils # 0.1 10^3/uL (0.0-0.1); Eosinophils % 0.3 %; Hematocrit 36.3 % (37.0-47.0); Hemoglobin 12.2 g/dL (11.5-15.3); Lymphocytes # 1.3 10^3/uL (0.8-4.8); Lymphocytes % 39.8 %; Mean Corpuscular HGB Conc 33.6 g/dL (30.0-36.0); Mean Corpuscular Hemoglobin 32.8 pg (28.0-34.0); Mean Corpuscular Volume 97.6 fl (81-99); Mean Platelet Volume 9.8 fL (7.4-10.4); Monocytes % 30.1 %; Neutrophils % 15.6 %; Nucleated Red Blood Cells % 1.2 %; Platelet Count 218 10^3/cmm (130-400); Red Blood Count 3.72 10^6/uL (4.1-5.3); White Blood Count 3.2 10^3/uL (4.0-10.0)
[2023-03-20 08:23] LABS: Alanine Aminotransferase 21 U/L (0-33); Albumin Level 3.3 g/dL (3.5-5.2); Alkaline Phosphatase 65 U/L (35-105); Anion Gap 15.8 (5-19); Aspartate Amino Transferase 23 U/L (0-32); Blood Urea Nitrogen 12 mg/dL (8-23); Calcium 8.7 mg/dL (8.5-10.5); Carbon Dioxide 25 mmol/L (22-29); Chloride 103 mmol/L (98-107); Creatinine Clr Calc Pharmacy 83.0726; Glomerular Filtration Rate 63.2 mL/min (90-130); Glucose 127 mg/dL (65-115); Osmolality Calculated 291 mOsm/kg (285-295); Potassium 3.8 mmol/L (3.5-5.1); Sodium 140 mmol/L (136-145); Total Bilirubin 0.3 mg/dL (0.15-1.2); Total Protein 6.3 g/dL (6.6-8.7)
[2023-03-20 08:52] LABS: Slide Review Slide Review Perform
[2023-03-26 07:18] VITALS: BMI 36.1
[2023-03-26 07:19] VITALS: BP 122/71; PULSE 87; RESP 18; TEMP 35.8; O2SAT 100
[2023-03-26 07:33] LABS: Basophils # 0.2 10^3/uL (0.0-0.1); Eosinophils % 0.4 %; Hematocrit 39.2 % (37.0-47.0); Hemoglobin 13.3 g/dL (11.5-15.3); Lymphocytes # 1.7 10^3/uL (0.8-4.8); Mean Corpuscular HGB Conc 33.9 g/dL (30.0-36.0); Mean Corpuscular Hemoglobin 32.7 pg (28.0-34.0); Mean Corpuscular Volume 96.3 fl (81-99); Mean Platelet Volume 9.5 fL (7.4-10.4); Monocytes # 1.7 10^3/uL (0.2-0.9); Monocytes % 16.3 %; Neutrophils # 6.39 10^3/uL (1.8-7.7); Neutrophils % 60.4 %; Nucleated Red Blood Cells % 0.2 %; Platelet Count 207 10^3/cmm (130-400); Red Blood Count 4.07 10^6/uL (4.1-5.3); Red Cell Distribution Width 14.8 % (12.1-15.1); White Blood Count 10.6 10^3/uL (4.0-10.0)
[2023-03-26 08:08] LABS: Alanine Aminotransferase 20 U/L (0-33); Albumin Level 3.6 g/dL (3.5-5.2); Alkaline Phosphatase 66 U/L (35-105); Anion Gap 18.2 (5-19); Aspartate Amino Transferase 22 U/L (0-32); Blood Urea Nitrogen 14 mg/dL (8-23); Carbon Dioxide 24 mmol/L (22-29); Chloride 99 mmol/L (98-107); Glomerular Filtration Rate 63.2 mL/min (90-130); Glucose 137 mg/dL (65-115); Osmolality Calculated 287 mOsm/kg (285-295); Potassium 4.2 mmol/L (3.5-5.1); Sodium 137 mmol/L (136-145); Total Bilirubin 0.4 mg/dL (0.15-1.2); Total Protein 6.6 g/dL (6.6-8.7)
[2023-03-26 09:15] VITALS: BP 133/78; PULSE 77; RESP 18; TEMP 36.3; O2SAT 98
[2023-03-26 09:23] VITALS: BMI 36.1
[2023-03-26] MEDS: sodium chloride 0.9% 250 ML 75 ML IV (09:36)
[2023-03-26] MEDS: OLANZapine 5 mg TABLET PO (09:36)
[2023-03-26] MEDS: palonosetron 0.25 mg/5 mL SDV IVP (09:36)
[2023-03-26] MEDS: fosaprepitant 150 MG in sodium chloride 0.9% 150 ML 300 MG IV (10:00)
[2023-03-26] MEDS: DOXOrubicin 2 mg/ml MDV 100 MG IVP (10:35)
[2023-03-26] MEDS: cyclophosphamide 1,000 MG in sodium chloride 0.9% 500 ML 500 MG IV (10:56)
[2023-03-26 12:24] VITALS: BP 107/65; PULSE 88; RESP 16; TEMP 36.6; O2SAT 93
[2023-04-02 09:00] VITALS: BP 118/74; PULSE 82; RESP 17; TEMP 36.3; O2SAT 92; BMI 36.1
[2023-04-02 09:20] LABS: Basophils # 0.1 10^3/uL (0.0-0.1); Basophils % 2.7 %; Eosinophils # 0.1 10^3/uL (0.0-0.8); Eosinophils % 2.2 %; Hematocrit 36.8 % (37.0-47.0); Hemoglobin 12.1 g/dL (11.5-15.3); Lymphocytes # 0.7 10^3/uL (0.8-4.8); Lymphocytes % 17.6 %; Mean Corpuscular HGB Conc 32.9 g/dL (30.0-36.0); Mean Corpuscular Hemoglobin 32.1 pg (28.0-34.0); Mean Corpuscular Volume 97.6 fl (81-99); Mean Platelet Volume 10.3 fL (7.4-10.4); Monocytes # 0.1 10^3/uL (0.2-0.9); Monocytes % 2.5 %; Neutrophils # 2.99 10^3/uL (1.8-7.7); Neutrophils % 73.3 %; Nucleated Red Blood Cells % 0 %; Platelet Count 111 10^3/cmm (130-400); Red Blood Count 3.77 10^6/uL (4.1-5.3); Red Cell Distribution Width 13.9 % (12.1-15.1); White Blood Count 4.1 10^3/uL (4.0-10.0)
[2023-04-02 09:45] VITALS: BP 122/76; PULSE 86; RESP 16; TEMP 36.6; O2SAT 96
[2023-04-02 10:13] LABS: Slide Review Slide Review Perform
--- NOTE | 2023-04-09 15:39 | PC.NURSE ---
PICC line dressing change completed for pt via sterile technique. No redness or irritation noted. No drainage noted. Pt tolerated well. JW
[2023-04-09 15:41] LABS: Basophils # 0.1 10^3/uL (0.0-0.1); Basophils % 2.8 %; Eosinophils # 0.1 10^3/uL (0.0-0.8); Eosinophils % 2.1 %; Hematocrit 38.7 % (36-47); Lymphocytes # 1.5 10^3/uL (0.8-4.8); Lymphocytes % 51.9 %; Mean Corpuscular HGB Conc 33.1 g/dL (30-55); Mean Corpuscular Volume 99.7 fl (85-98); Mean Platelet Volume 10.3 fL (7.4-10.4); Monocytes % 33.9 %; Neutrophils % 7.9 %; Nucleated Red Blood Cells % 0 %; Platelet Count 200 10^3/cmm (157-399); Red Blood Count 3.88 10^6/uL (3.85-5.65); Red Cell Distribution Width 15.9 % (12.1-15.1); White Blood Count 2.83 10^3/uL (3.29-11.43)
[2023-04-09 16:11] LABS: Neutrophils # 0.22 10^3/uL (1.8-7.7)
[2023-04-09 16:12] LABS: Slide Review Slide Review Perform
[2023-04-10 08:44] VITALS: BP 116/67; PULSE 83; RESP 16; TEMP 36.4; O2SAT 93
--- NOTE | 2023-04-10 08:45 | PC.PHAR ---
clarified with melissa that patient does indeed need neulasta as opposed to neupogen. melissa confirmed that poddar wants neulasta and she confirmed with manju that it would be covered. melissa placed a one time order for pegfilgrastim to be given today.
[2023-04-10] MEDS: pegfilgrastim-bmez 6 mg/0.6 mL SYR SUBCUT (08:53)
[2023-04-10 09:00] VITALS: BP 117/62; PULSE 83; RESP 17; TEMP 37; O2SAT 94
== END 2023-04-11 23:59 | disposition home or self-care (01) ==
PROVIDERS: Internal Medicine Medical Oncology; PCP Registered Nurse; Visit Provider Internal Medicine Medical Oncology
DX: C50.411 Malignant neoplasm of upper-outer quadrant of right female breast (principal)
CPT/HCPCS: 36592; 80053; 85025; 96365; 96366; 96367; 96401; 96411; 96413; 99214; J1100; J1453; J1642; J1956; J2469; J7030; J7040; J7050; J9000; J9070; Q5120

== ENCOUNTER 2023-05-10 08:23 | Oncology outpatient (recurring) (ONCR) | payer OTHER, SELFPAY ==
[2023-04-17 10:22] LABS: Hematocrit 41.3 % (36-47); Mean Corpuscular HGB Conc 32.9 g/dL (30-55); Mean Corpuscular Volume 100.2 fl (85-98); Mean Platelet Volume 10.4 fL (7.4-10.4); Platelet Count 144 10^3/cmm (157-399); Red Blood Count 4.12 10^6/uL (3.85-5.65); Red Cell Distribution Width 17.2 % (12.1-15.1); White Blood Count 24.26 10^3/uL (3.29-11.43)
[2023-04-17 10:31] LABS: Alanine Aminotransferase 33 U/L (0-33); Albumin Level 4.1 g/dL (3.5-5.2); Alkaline Phosphatase 152 U/L (35-105); Blood Urea Nitrogen 16 mg/dL (8-23); Calcium 9.5 mg/dL (8.5-10.5); Carbon Dioxide 24 mmol/L (22-29); Chloride 102 mmol/L (98-107); Globulin 2.7 g/dL (1.3-4.6); Glomerular Filtration Rate 72.4 mL/min (90-130); Glucose 132 mg/dL (65-115); Osmolality Calculated 289 mOsm/kg (285-295); Sodium 138 mmol/L (136-145); Total Bilirubin 0.3 mg/dL (0.15-1.2); Total Protein 6.8 g/dL (6.6-8.7)
[2023-04-17 10:36] LABS: Aspartate Amino Transferase 37 U/L (0-32)
--- NOTE | 2023-04-17 10:56 | N.ONRAD NP_ITS ---
Radiation Oncology New Patient Visit Patient: Fanny Will MR#: [id number] : 1960> Age: 63> Sex: Female> Dictated by: Noé Tang Date of Service: 04/17/2023 Referring Physician(s) : Alfonso Orosco MD; Presley Marquez MD Diagnosis: Breast, right, upper outer quadrant, invasive micropapillary carcinoma (2 foci), extensive intraductal component with positive deep margin,, stage pT1c pN0 M0, ER strongly positive, NH weakly positive, HER2 negative, Ki-67 40% Radiotherapy to date: Summary > No prior radiation therapy. Chief Complaint / History of Present Illness: Mrs. Will is a 63-year-old lady who underwent screening mammography 10/19/2022. An irregular density was noted in the upper outer quadrant. Ultrasound showed a spiculated hypoechoic lesion at 10:00 and a separate subcutaneous nodule in the same area. On 11/29/2022 she underwent an ultrasound-guided biopsy of both areas as well as a right axillary lymph node. Both breast lesions showed invasive ductal carcinoma, ER strongly positive, NH weakly positive, HER2 negative and with a high Ki-67. The axillary node was negative. She proceeded to have an MR of the breast 12/20/2022. It showed an irregular mass at the 10 o'clock position measuring 2.3 x 1.4 x 1.6 cm. Enhancement extended to the second biopsy site where enhancement was noted but no mass. No lymphadenopathy was noted on MRI. It was judged that the patient was a candidate for breast conservation. She underwent a lumpectomy with axillary sentinel node biopsy 01/02/2023. The pathology showed 2 foci of grade 3 invasive micropapillary carcinoma with the largest measuring 15 mm. An extensive intraductal component was noted measuring at least 15 mm. The DCIS was grade 3 and there was a positive posterior margin. The surgery went down to the chest wall and it was not felt that additional surgery would assure a clear margin. Oncotype DX was performed and returned with a high risk. Therefore postoperative chemotherapy was delivered. Chemotherapy went relatively well though after the third and fourth cycles, the patient had severe neutropenia. She had a 25% reduction in dose of her fourth cycle and it was delayed 1 week. Mrs. Will is now referred for postoperative radiation as part of breast conservation. Current Medications: AmLODIPine Besylate, cholecalciferol, ciprofloxacin HCl, cyclobenzaprine HCl, hydroCHLOROthiazide. Allergies: Penicillen Medical History: No history of collagen vascular disease. No previous radiation therapy. Peripheral neuropathy in her feet. She applies utter cream at night with relief of symptoms. Allergic to penicillin. She has hypertension, reflux, and history of vitamin D deficiency. Surgical History: , tonsillectomy, and recent right breast surgery. Family History: Father had cancer Social History: , non-smoker, nondrinker Current Complaints / Review of Systems: . Vital Signs: Performed on 04/17/2023 8:58 AM BMI - 36.188 kg/m2 (high), Height - 68 in, Weight - 238 lbs, Temperature - 96.3 f, Pulse - 67 /min, Respiration - 18 /min, O2 Sat - 92 % (low), Pain - 3, Fatigue - 10 and BP - 137/ 78 mm(hg). Physical Exam: Alert, oriented, no acute distress. No cervical, supraclavicular, or axillary lymphadenopathy. Lungs clear to percussion. On auscultation no rales rhonchi or wheezes. Heart rhythm regular. No murmur or gallop or rub. The left breast is normal in appearance and free of masses. The right breast has a good cosmetic result though there is a large tissue defect laterally toward the axilla. The lumpectomy scar is well-healed. The cavity, based on palpation, goes down to the chest wall. No induration, mass, or nodularity in the area. No masses elsewhere in the breast. Abdomen without distention. No organomegaly, mass, or tenderness. Musculoskeletal - normal gait without assistance. No bone tenderness. 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 She has undergone a successful lumpectomy with negative margins for invasive cancer and a positive deep margin for DCIS. It was not felt the margin could be improved on with additional surgery. She has received postoperative chemotherapy and will be a candidate for hormonal therapy following radiation. As part of breast conservation, she is a candidate for external beam radiation. She is a candidate for hypofractionation. I recommended 3 weeks of treatment to the whole breast followed by boost to the tumor bed, giving care to cover the deep margin in the area of the lumpectomy. I discussed a typical course of treatment, side effects, and possible complications. I particularly discussed the risk of pneumonitis, rib fracture, lymphedema, and second malignancy, though I did emphasize that these risks are very small. She wishes to proceed as recommended. Plan: She will return for simulation next week. Signed by: 04/17/2023 10:54:11 AM <<Signature on File>> Time spent with patient: CPT Code: CPT Code:
[2023-04-17 11:10] LABS: Slide Review Slide Review Perform
[2023-04-17 11:11] LABS: Absolute Segmented Neutrophil 19.7 10/cmm (1.6-7.1); Band Neutrophils Absolute 0.7 10^3/cmm (0.0-1.2); Eosinophils 0 %; Lymphocytes 6 %; Lymphocytes Absolute 1.5 10^3/cmm (1.2-3.4); Monocytes Absolute 1.9 10^3/cmm (0.1-0.6); Segmented Neutrophils 81 %; Total Cells Counted 100 (0-100)
[2023-04-17 11:12] LABS: Absolute Neutrophil 20.4 10^3/cmm (1.4-6.5); Anisocytosis Trace; Macrocytosis 1+; Platelet Estimate Normal (Normal)
[2023-04-17 11:45] VITALS: BP 127/77; PULSE 85; RESP 17; TEMP 36.8; O2SAT 94
[2023-04-17 16:30] VITALS: BP 125/80; PULSE 83; RESP 17; TEMP 37.1; O2SAT 96
--- NOTE | 2023-04-30 10:18 | ONCRAD TMN_ITS ---
Radiation Oncology Weekly Treatment Management Patient: Fanny Will MR#: [id number] : 1960> Attending Physician: Gurmeet Lehman Date of Service: 04/30/2023 Referring Physician(s) : Diagnosis: C50.411 - Malignant neoplasm of upper-outer quadrant of right female breast, Diagnosed 04/17/2023 (Active) Radiotherapy to date: Course: RT Breast 2022, Treatment Site: RtBreast, Ref. ID: RtBreast, Energy: 15X/6X, Dose/Fx (cGy): 266, #Fx: , Dose Correction (cGy): 0, Total Dose (cGy): 266, Start Date: 04/30/2023, Elapsed Days: 0 Reason for visit: The patient is being seen today as part of their regularly scheduled weekly on treatment visits to assess for acute toxicities from radiotherapy. Review of Systems: Chemo made her tired. Now feeling better and some improvement since chemo finished. 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 Plans to begin Aloe vera. Fell last week while visiting daughter in [place]. No significant injury. Vital Signs: Performed on 04/30/2023 9:01 AM BMI - 36.279 kg/m2 (high), Height - 68 in, Weight - 238.6 lbs, Temperature - 96.6 f, Pulse - 66 /min, Respiration - 16 /min, O2 Sat - 97 %, Pain - 0, Fatigue - 0 and BP - 127/ 70 mm(hg). Physical Exam: Imaging: Radiation therapy imaging related to accurate target localization (i.e. KV, MV and CBCT) was reviewed. Appropriate changes, if any, were made to ensure treatment accuracy. Plan: Good tolerance of first treatment. Aquaphor sample given. Continue as planned. Signed by: Gurmeet Lehman 04/30/2023 10:17:05 AM
--- NOTE | 2023-05-07 15:19 | ONCRAD TMN_ITS ---
Radiation Oncology Weekly Treatment Management Patient: Suman Escobedo> MR#: [id number] : 1960> Attending Physician: Gurmeet Lehman Date of Service: 05/07/2023 Referring Physician(s) : Diagnosis: C50.411 - Malignant neoplasm of upper-outer quadrant of right female breast, Diagnosed 04/17/2023 (Active) Radiotherapy to date: Course: RT Breast 2022, Treatment Site: RtBreast, Ref. ID: RtBreast, Energy: 15X/6X, Dose/Fx (cGy): 266, #Fx: , Dose Correction (cGy): 0, Total Dose (cGy): 1,596, Start Date: 04/30/2023, End Date: 05/07/2023, Elapsed Days: 7 Reason for visit: The patient is being seen today as part of their regularly scheduled weekly on treatment visits to assess for acute toxicities from radiotherapy. Review of Systems: She has no breast sxs. She has recurrent sciatica which is limiting her activity. She is using Aquaphor over breast. Vital Signs: Performed on 05/07/2023 8:59 AM BMI - 36.188 kg/m2 (high), Height - 68 in, Weight - 238 lbs, Temperature - 96.9 f, Pulse - 66 /min, Respiration - 18 /min, O2 Sat - 99 %, Pain - 0, Fatigue - 0 and BP - 126/ 64 mm(hg)(/low). Physical Exam: Imaging: Radiation therapy imaging related to accurate target localization (i.e. KV, MV and CBCT) was reviewed. Appropriate changes, if any, were made to ensure treatment accuracy. Plan: Good tolerance of treatment. Continue treatment as planned. Telemedicine Consent Patient seen today via Telemedicine by agreement and consent of patient. Telemedicine technology used during the visit include audio and, as available, review of images. This patient encounter is appropriate and reasonable under the circumstances given the patient???s particular presentation at this time. The patient has been advised of the potential risks and limitations of this mode of treatment (including but not limited to the absence of in-person examination) and has agreed to be treated in a remote fashion in spite of them. Any and all of the patient???s/patient???s family???s questions on this issue have been answered and I have made no promises or guarantees to the patient. The patient has also been advised to contact this office for worsening conditions or problems, and seek emergency medical treatment and/or call 911 if the patient deems either necessary. Signed by: Gurmeet Lehman 05/07/2023 3:19:02 PM
[2023-05-08 09:22] LABS: Urine Appearance Cloudy (CLEAR); Urine Color Yellow (Yellow); pH Urine 6 (5-7)
[2023-05-08 09:23] LABS: Add Urine Microscopic? YES; Bilirubin Urine Neg (Negative); Blood Urine Neg (Negative); Glucose Urine UA Norm (Normal); Ketones Urine Negative (Negative); Leukocyte Esterase Urine Negative (Negative); Nitrate Urine Positive (Negative); Protein Urine Neg (Negative); Urobilinogen Urine Norm (Negative)
[2023-05-08 09:30] LABS: Amorphous Sediment Urine 1+ /hpf; Bacteria Urine 2+ /hpf; Mucus Urine TRACE /hpf
[2023-05-08 09:31] LABS: Add Urine Culture? Yes
--- NOTE | 2023-05-08 10:00 | USCV_ITS ---
Fanny Will Age: 63 Gender: F : 1960 Exam Date: 05/08/2023 10:01 Ordering Phys: Alfonso Orosco MD Technologist: Eri Davies Exam Location: [facility] – [place] Indication: WARM RT LEG LARGER THAN LT. UNDERGOING CHEMO AT THIS TIME FOR BREAST CANCER HISTORY: Rt leg swelling and larger than lt. Rt leg is warm PROCEDURES: Venous duplex imaging was performed in only the right lower extremity. The following venous structures were evaluated: common femoral vein, profunda vein, proximal portion of the greater saphenous vein, superficial femoral vein, and the popliteal vein. In addition, the posterior tibial and peroneal trunk were evaluated. Serial compression, augmentation maneuvers, and spectral Doppler flow evaluation were performed. FINDINGS: DVT noted Rt. CFV through Rt. Peroneal including the Rt. ATV. Rt prox GSV has debris all other sections appear free of thrombus. Prelim given to ONC/Lou . CONCLUSIONS Acute right lower extremity deep venous thrombosis. Extensive occlusive DVT. Dr. Naomie Hoang DO (Electronically Signed) Final Date: 08 May 2023 11:54 S
[2023-05-08 11:28] LABS: Add Urine Microscopic? YES; Bilirubin Urine Neg (Negative); Blood Urine Neg (Negative); Glucose Urine UA Norm (Normal); Ketones Urine Negative (Negative); Leukocyte Esterase Urine Negative (Negative); Nitrate Urine Positive (Negative); Protein Urine Neg (Negative); Urine Appearance Cloudy (CLEAR); Urine Color Yellow (Yellow); Urobilinogen Urine Norm (Negative); pH Urine 6 (5-7)
[2023-05-08 11:36] LABS: Add Urine Culture? No
[2023-05-08 11:38] LABS: Amorphous Sediment Urine TRACE /hpf; Bacteria Urine 2+ /hpf; Mucus Urine TRACE /hpf
== END 2023-05-11 23:59 | disposition home or self-care (01) ==
PROVIDERS: PCP Registered Nurse; Visit Provider Internal Medicine Medical Oncology
DX: C50.411 Malignant neoplasm of upper-outer quadrant of right female breast (principal)
CPT/HCPCS: 36592; 77290; 77295; 77300; 77334; 77336; 77387; 77412; 80053; 81001; 85007; 85025; 87086; 93971; 99024; 99205; 99214

== ENCOUNTER 2023-05-13 09:19 | Inpatient (IN) | payer OTHER, SELFPAY ==
[2023-05-13] VITALS (25 sets, daily range): BP systolic 99–152; BP diastolic 70–96; PULSE 75–107; RESP 10–23; TEMP 37–37.1; O2SAT 94–100; BMI 36.1
--- NOTE | 2023-05-13 09:54 | CT_ITS ---
WS: [id number] CTA OF THE CHEST WITH PULMONARY EMBOLISM PROTOCOL TECHNIQUE: High-resolution contrast enhanced CTA of the chest with coronal and sagittal reformatted i mages with pulmonary embolism protocol. MIP images are also reviewed. CLINICAL INFORMATION: sob, known extensive R LE DVT COMPARISON: None. DLP: 852.[address] scans at [facility] use at least one of these dose optimization techniques: automated e xposure control; mA and/or kV adjustment per patient size (includes targeted exams where dose is matc hed to clinical indication); or iterative reconstruction. FINDINGS: Acute pulmonary embolus bilaterally. Filling defects in the distal LEFT main pulmonary artery with ex tensive pulmonary embolus in the LEFT segmental and subsegmental pulmonary arteries. Less prominent e mbolus in the RIGHT distal main pulmonary artery extending into the segmental and subsegmental pulmon susan arteries. Evidence of RIGHT heart strain with mild bowing of the LEFT ventricle. Normal caliber thoracic aorta. Small nodule LEFT lower lobe measuring 5 mm at the diaphragm. Addition al small pulmonary nodule LEFT lower lobe medially measuring 4 mm. Tiny groundglass nodules in the RI GHT middle lobe measuring 4 mm. No acute pulmonary infiltrates. Small calcified LEFT thyroid nodule. No mediastinal or hilar lymphadenopathy. Diffuse fatty filtratio n of the liver. Cholelithiasis. Adrenal glands are normal. Fatty atrophy of the pancreas. Normal GE j unction. Hypertrophic changes thoracic spine. Prior postoperative changes RIGHT breast and axilla. IMPRESSION: 1. Extensive pulmonary embolus in the distal LEFT main pulmonary artery extending into the segmental and subsegmental pulmonary arteries throughout the LEFT lung. Less extensive right-sided pulmonary e mboli. 2. Evidence of RIGHT heart strain. Recommend correlation with echocardiography. 3. No acute pulmonary infiltrates. 4. A few noncalcified subcentimeter pulmonary nodules. Recommend 12-month follow-up chest CT. Notified ALEX Up at 05/13/2023 11:45 AM.
--- NOTE | 2023-05-13 09:55 | ECG_ITS ---
[facility] Test Date: 2023-05-13 Pat Name: Fanny Will Department: Room: Gender: Female Sneller Hand: : 1960 Requested By: Kary Martin Order Number: [id number] Elder MD: Alicia Sutton M.D. Measurements Intervals [place] Rate: 78 P: -8 [place]: 144 QRS: -9 QRSD: 89 T: 5 QT: 378 QTc: 431 Interpretive Statements SINUS RHYTHM LOW QRS VOLTAGE IN PRECORDIAL LEADS [QRS DEFLECTION < 1.0 mV IN CHEST LEADS] PATTERN CONSISTENT WITH PULMONARY DISEASE No previous ECG available for comparison Electronically Signed On 05-13-2023 10:28:08 CDT by Alicia Sutton M.D. [email or web address]/store/[id number]
--- NOTE | 2023-05-13 09:55 | ED_ITS ---
This patient was reviewed with me briefly by the midlevel clinician as per departmental policy for patients who are being considered for admission. I did not personally see or examine this patient. This patient had a work-up and was found to have pulmonary embolus with large clot burden. She has a history of cancer and developed pulmonary embolus on a DOAC. It is appropriate for her to be admitted for IV heparin at this facility. She is not hypoxic, tachycardic or any other signs of severe pulmonary compromise. This case was discussed with the hospitalist by the midlevel clinician who is excepted the patient. I wrote for Bridge orders and a bed order for this patient. Again consistent with this emergency department policy. HPI - SOB/Dyspnea General: Chief Complaint: Shortness of Breath/Dyspnea Stated Complaint: sent from onc, possible blood clot Time Seen by Provider: 05/13/23 09:39 Source: patient Mode of arrival: ambulatory Limitations: no limitations History of Present Illness: HPI Narrative: Patient is a nice 63-year-old female who presents to ED today with a complaint of dyspnea. She states symptoms started a few days ago. She is not reporting shortness of breath at rest however states she becomes extremely winded with minimal exertion. Patient is undergoing chemo and radiation for breast cancer. She was recently diagnosed with a fairly extensive right lower extremity DVT and placed on Eliquis for this. Patient denies recent URI illness. She states she has had shortness of breath previously with chemotherapy treatments but feels like this is different. She has not been running fevers. MD elicited complaint: shortness of breath Pertinent past history: other (DVT) Onset (ago): day(s) Timing: intermittent (with exertion) Severity: moderate Exacerbating factors: exertion Relieving factors: rest Known history of: DVT Associated symptoms: Reports no associated symptoms and extremity pain (R LE- known DVT); Deny abdominal pain, chest pain, dizziness, fever(s), hemoptysis, lightheadedness, nausea, orthopnea, palpitations, syncope or vomiting Treatment prior to arrival: none Related Data: Home oxygen amount: none Review of Systems Const: Denies: fever(s), chills, body aches, fatigue or malaise Eyes: Denies: change in vision or blurry vision Card: Reports: dyspnea on exertion; Denies: chest pain, palpitations, irregular heart rhythm, lightheadedness, syncope, orthopnea or acrocyanosis Resp: Reports: dyspnea; Denies: productive cough, wheezing, pain on inspiration or hemoptysis GI: Denies: abdominal pain, nausea, vomiting, heartburn or diarrhea : Denies: dysuria Musc: Reports: extremity pain (R LE-known DVT) and extremity swelling; Denies: neck pain, back pain, joint pain or joint swelling Skin/Breast: Denies: rash Neuro: Denies: headache(s), numbness in extremities, weakness in extremities, sensory changes or dizziness PFSH ED PFSH: Medical History History of recurrent urinary tract infection Hypertension Left sided sciatica Vitamin D deficiency Surgical History H/O right breast biopsy (11/29/22) History of section History of tonsillectomy Status post right breast lumpectomy (01/02/23) Right breast lumpectomy with axillary sentinel lymph node biopsy Family History Father Cancer Mother Diabetes CHF (congestive heart failure) Hypertension Social History Smoking and tobacco status: never smoked Alcohol intake: never Substance/Drug Use: never Adopted: No Caregiver/support person: No Lives independently: No Household members: spouse Marital status: service: No Current occupational status: retired Sexually active: Yes Do you think of yourself as: Straight/Heterosexual Current gender identity: Female Physical Exam Const: COMMON NORMALS: no acute distress, patient oriented x3, no limitations, alert and well nourished HENMT: COMMON NORMALS: normocephalic and atraumatic HEAD & SCALP: normal to inspection, normocephalic and atraumatic Eye: GENERAL EYE: appearance normal, both eyes and all related structures Neck/C-Spine: COMMON NORMALS: full ROM, no lymphadenopathy, supple and no me ningeal signs Chest: COMMONS NORMALS: normal inspection of the chest and normal palpation of entire chest wall Resp: COMMON NORMALS: normal respiratory effort and clear to auscultation bilaterally AUSCULTATION: clear to auscultation bilaterally Cardio: COMMON NORMALS: regular rate and regular rhythm RATE: regular rate RHYTHM: regular rhythm GI: COMMON NORMALS: Normal to inspection, nondistended, normoactive bowel sounds present, Soft to palpation, non-tender, No hepatosplenomegaly present and no masses PALPATION: Yes Soft to palpation and Yes No hepatosplenomegaly present : COMMON NORMALS: Yes no CVA tenderness BLADDER/KIDNEY EXAM: Yes no CVA tenderness Back/Pelvis: COMMON NORMALS: no CVA tenderness and thoracic and lumbar spine normal to inspection Extremity: GENERAL: Yes normal exam except as noted OTHER: swelling noted to R LE when compared to L consistent with her known extensive DVT Neuro: COMMON NORMALS: patient oriented x3, moves all extremities, no focal mo tor deficits and no sensory deficits noted SENSORIUM/ORIENTATION: Yes alert MENINGEAL SIGNS: Yes no meningeal signs Skin: COMMON NORMALS: no rashes or lesions noted GENERAL SKIN EXAM: no rashes or lesions noted Course Consultations: Consultation #1: Dr. Jimenes-accepts admission to ICU; requests echo/order heparin bolus/drip Vital Signs: Vital signs: Vital Signs Temperature 98.8 F 05/13/23 09:24 Pulse Rate 78 05/13/23 10:08 Respiratory Rate 18 05/13/23 10:08 Blood Pressure 127/88 05/13/23 10:08 Pulse Oximetry 100 05/13/23 10:08 Oxygen Delivery Me thod Room Air 05/13/23 10:08 MDM - SOB/Dyspnea Medical Decision Making Patient is a nice 63-year-old female currently undergoing chemo and radiation for breast cancer here for complaints of dyspnea. Just a few days ago she was diagnosed with a fairly extensive right lower extremity DVT and placed on Eliquis. She states over the past 48 hours she has developed acute onset dyspnea present with minimal exertion. Vital signs are stable here. She is not tachycardic or hypoxic. Her CTA showing extensive pulmonary emboli in the distal left main pulmonary artery and throughout her left lung. Additional emboli noted on the right side. There was evidence of heart strain. Heart strain not evident on her EKG. I have spoken to Dr. Jarvis who agrees with plan for admission. I spoke to Dr. Jimenes who will admit to ICU. Patient will be started on a heparin bolus/drip. Echo ordered. Lab Data 05/13/23 09:52 05/13/23 09:52 Labs/Radiology: Laboratory Results WBC 6.37 10^3/uL (3.29-11.43) 05/13/23 09:52 RBC 4.38 10^6/uL (3.85-5.65) 05/13/23 09:52 Hgb 15.00 g/dL (11.27-16.99) 05/13/23 09:52 Hct 45.3 % (36-47) 05/13/23 09:52 MCV 103.4 fl (85-98) H 05/13/23 09:52 MCH 34.2 pg (27-33) H 05/13/23 09:52 MCHC 33.1 g/dL (30-55) 05/13/23 09:52 RDW 14.7 % (12.1-15.1) 05/13/23 09:52 Plt Count 198 10^3/cmm (157-399) 05/13/23 09:52 MPV 10.0 fL (7.4-10.4) 05/13/23 09:52 Neut % (Auto) 57.2 % 05/13/23 09:52 Lymph % (Auto) 26.5 % 05/13/23 09:52 Mitchell % (Auto) 9.7 % 05/13/23 09:52 Eos % (Auto) 4.6 % 05/13/23 09:52 Baso % (Auto) 1.7 % 05/13/23 09:52 Neut # (Auto) 3.64 10^3/uL (1.8-7.7) 05/13/23 09:52 Lymph # (Auto) 1.7 10^3/uL (0.8-4.8) 05/13/23 09:52 Mitchell # (Auto) 0.6 10^3/uL (0.2-0.9) 05/13/23 09:52 Eos # (Auto) 0.3 10^3/uL (0.0-0.8) 05/13/23 09:52 Baso # (Auto) 0.1 10^3/uL (0.0-0.1) 05/13/23 09:52 Nucleated RBC % (auto) 0 % 05/13/23 09:52 Nucleated RBCs # 0.0 /100WBC 05/13/23 09:52 PT 20.60 SECONDS (12.1-14.9) H 05/13/23 09:52 INR 1.70 (0.8-1.2) H 05/13/23 09:52 APTT 32.9 SECONDS (23.9-36.7) 05/13/23 09:52 Sodium 138 mmol/L (136-145) 05/13/23 09:52 Potassium 3.9 mmol/L (3.5-5.1) 05/13/23 09:52 Chloride 101 mmol/L (98-107) 05/13/23 09:52 Carbon Dioxide 24 mmol/L (22-29) 05/13/23 09:52 Anion Gap 16.9 (5-19) 05/13/23 09:52 BUN 15 mg/dL (8-23) 05/13/23 09:52 Creatinine 1.0 mg/dL (0.5-0.9) H 05/13/23 09:52 GFR Calculation 56.0 mL/min (90-130) L 05/13/23 09:52 Glucose 113 mg/dL (65-115) 05/13/23 09:52 Calculated Osmolality 288 mOsm/kg (285-295) 05/13/23 09:52 Calcium 9.8 mg/dL (8.5-10.5) 05/13/23 09:52 Total Bilirubin 0.7 mg/dL (0.15-1.2) 05/13/23 09:52 AST 34 U/L (0-32) H 05/13/23 09:52 ALT 27 U/L (0-33) 05/13/23 09:52 Alkaline Phosphatase 74 U/L (35-105) 05/13/23 09:52 Troponin T Baseline 34 ng/L (0-10) H 05/13/23 09:52 Troponin T 120 Minute 35.72 ng/L (0-10) H 05/13/23 11:49 Delta Troponin T 1.72 ABS# (0-10) 05/13/23 11:49 NT-Pro-B Natriuret Pep 127 pg/mL (0-125) H 05/13/23 09:52 Total Protein 7.1 g/dL (6.6-8.7) 05/13/23 09:52 Albumin 4.5 g/dL (3.5-5.2) 05/13/23 09:52 Globulin 2.6 g/dL (1.3-4.6) 05/13/23 09:52 All radiology interpretation(s) finalized by discharge Discharge Plan Discharge Patient Disposition: Admitted As Inpatient Clinical Impression: Bilateral pulmonary embolism, Superficial venous thrombosis of right upper extremity Condition: Stable Coding Level of Care Code ED Mathematical Sciences Professor for Laisha Hoskins
[2023-05-13 10:04] LABS: Basophils # 0.1 10^3/uL (0.0-0.1); Basophils % 1.7 %; Eosinophils # 0.3 10^3/uL (0.0-0.8); Eosinophils % 4.6 %; Hematocrit 45.3 % (36-47); Lymphocytes # 1.7 10^3/uL (0.8-4.8); Lymphocytes % 26.5 %; Mean Corpuscular HGB Conc 33.1 g/dL (30-55); Mean Corpuscular Hemoglobin 34.2 pg (27-33); Mean Corpuscular Volume 103.4 fl (85-98); Monocytes # 0.6 10^3/uL (0.2-0.9); Monocytes % 9.7 %; Neutrophils # 3.64 10^3/uL (1.8-7.7); Neutrophils % 57.2 %; Nucleated Red Blood Cells % 0 %; Platelet Count 198 10^3/cmm (157-399); Red Blood Count 4.38 10^6/uL (3.85-5.65); Red Cell Distribution Width 14.7 % (12.1-15.1); White Blood Count 6.37 10^3/uL (3.29-11.43)
--- NOTE | 2023-05-13 10:04 | PC.NURSE ---
#20 IV started in left forearm, 1x attempt using aseptic technique. Patient tolerated well. Labs drawn with IV insertion, identified using patient name and at bedside with verification on label. Mervat from Lab present and retrieved vials and took them to lab.
[2023-05-13 10:22] LABS: Troponin(5th) Baseline 34 ng/L (0-10)
[2023-05-13 10:32] LABS: Alanine Aminotransferase 27 U/L (0-33); Albumin Level 4.5 g/dL (3.5-5.2); Alkaline Phosphatase 74 U/L (35-105); Anion Gap 16.9 (5-19); Aspartate Amino Transferase 34 U/L (0-32); Blood Urea Nitrogen 15 mg/dL (8-23); Calcium 9.8 mg/dL (8.5-10.5); Carbon Dioxide 24 mmol/L (22-29); Chloride 101 mmol/L (98-107); Globulin 2.6 g/dL (1.3-4.6); Glucose 113 mg/dL (65-115); NT Pro B Type Natriuretic Pept 127 pg/mL (0-125); Osmolality Calculated 288 mOsm/kg (285-295); Potassium 3.9 mmol/L (3.5-5.1); Sodium 138 mmol/L (136-145); Total Bilirubin 0.7 mg/dL (0.15-1.2); Total Protein 7.1 g/dL (6.6-8.7)
--- NOTE | 2023-05-13 11:02 | USCV_ITS ---
Fanny Will Age: 63 Gender: F : 1960 Exam Date: 05/13/2023 11:46 Ordering Phys: Kary Martin Technologist: Orlando Mcmahan Exam Location: [facility] – [place]_ Indication: hx of dvt and pe rt arm swelling post pic line PROCEDURES: The following venous structures were evaluated: internal jugular vein, subclavian vein, axillary vein, and brachial veins. The following venous structures were evaluated: internal jugular vein, subclavian vein, axillary vein, and brachial veins. In addition, the basilic vein, cephalic vein, radial vein, and ulnar vein. FINDINGS: There is thrombus in rt cephalic vein . The rest of the rt arm is normal CONCLUSIONS Superficial thrombus Right cephalic vein. Remainder RUE veins patent. Notified Kary JOHNSON at 1249 05/13/23 Xavier Mock MD (Electronically Signed) Final Date: 13 May 2023 12:50 S
[2023-05-13] MEDS: iohexol 350 mg/mL 500 mL Btl (per mL) IV (11:15)
--- NOTE | 2023-05-13 12:02 | ECG_ITS ---
[facility] Test Date: 2023-05-13 Pat Name: Fanny Will Department: Room: Gender: Female Vice President Of Manufacturing: : 1960 Requested By: Kary Martin Order Number: [id number] Jael MD: Osmel Mendes M.D. Measurements Intervals [place] Rate: 74 P: 38 [place]: 167 QRS: -12 QRSD: 83 T: 10 QT: 387 QTc: 431 Interpretive Statements SINUS RHYTHM Compared to ECG 05/13/2023 10:05:05 No significant changes Electronically Signed On 05-13-2023 12:13:27 CDT by Osmel Mendes M.D. [email or web address]Care[facility].[email or web address]/store/[id number]
--- NOTE | 2023-05-13 12:13 | XR_ITS ---
WS: [id number] EXAMINATION: XR chest 1V portable [id number] REASON FOR EXAM: SOB COMPARISON: 02/05/2023 ORDER DATE: 05/13/2023 12:27 PM TECHNIQUE: A single, portable frontal chest x-ray was obtained. X-RAY FINDINGS: The lungs are clear. Pleural spaces are clear. No pleural effusions or pneumothorax. Cardiomediastinal silhouette is normal. No evidence for pulmonary edema There is elevation the right hemidiaphragm and scattered surgical clips superimposing the right chest .. Soft tissue and osseous structures are unremarkable. No tubes or lines are present. IMPRESSION: Unremarkable frontal portable chest x-ray. No change from previous
--- NOTE | 2023-05-13 12:22 | USCV_ITS ---
Fanny Will Age: 63 Gender: F : 1960 Exam Date: 05/13/2023 12:48 Ordering Phys: Kary Martin Technologist: Orlando Mcmahan [place] [facility] [place] Indication: pe heart strain BP: 134 / 94 HR: 87 Rhythm: Sinus Technical Quality: Adequate MEASUREMENTS (Male / Female) Normal Values 2D ECHO LV Diastolic Diameter PLAX 3.4 cm 4.2 - 5.9 / 3.9 - 5.3 cm LV Systolic Diameter PLAX 2.4 cm IVS Diastolic Thickness 1.3 cm 0.6 - 1.0 / 0.6 - 0.9 cm IVS Systolic Thickness 1.5 cm LVPW Diastolic Thickness 1.0 cm 0.6 - 1.0 / 0.6 - 0.9 cm LVPW Systolic Thickness 1.4 cm LVOT Diameter 2.0 cm LV Ejection Fraction 2D Teich 48.9 % LV Ejection Fraction MOD 2C 65.6 % LV Ejection Fraction 2C AL 65.2 % LA Diameter 3.3 cm M-MODE Aortic Annulus Diameter 2.8 cm LA Ao Ratio MM 1.3 MV E Point Septal Separation 0.5 cm DOPPLER AV Peak Velocity 181.0 cm/s LVOT Peak Velocity 106.0 cm/s AV Area Cont Eq vti 2.4 cm squared AV Area Cont Eq pk 1.8 cm squared MV Area PHT 3.1 cm squared Mitral E to A Ratio 0.6 MV E' Velocity 35.0 cm/s Mitral E to MV E' Ratio 6.9 Mitral E to LV E' Lateral Ratio 6.0 Mitral E to LV E' Septal Ratio 8.4 TR Peak Velocity 149.7 cm/s TR Peak Gradient 9.0 mmHg TV Peak E Velocity 64.0 cm/s Right Atrial Pressure 3.0 mmHg Pulmonary Artery Systolic Pressu 12.0 mmHg RV Acceleration Time 0.1 s FINDINGS Left Ventricle Normal left ventricular size, systolic function and wall thickness, with no regional wall motion abnormalities. Left ventricular ejection fraction is estimated at 70 %. Normal diastolic function. Right Ventricle Normal right ventricular size and systolic function. Right ventricular systolic pressure 12 mmHg. Right Atrium Normal right atrial size. Left Atrium Normal left atrial size. Mitral Valve Structurally normal mitral valve. No mitral valve stenosis. No mitral valve regurgitation. Aortic Valve Structurally normal trileaflet aortic valve. No aortic valve stenosis. No aortic valve regurgitation. Tricuspid Valve Structurally normal tricuspid valve. No tricuspid valve stenosis. Trace tricuspid valve regurgitation. Pulmonic Valve Structurally normal pulmonic valve. No pulmonary valve stenosis. No pulmonary valve regurgitation. Pericardium No pericardial effusion. Aorta Normal size aortic root and proximal ascending aorta. IVC Normal IVC dimension with >50% respiratory change of the inferior vena cava. CONCLUSIONS 1. Normal left ventricular size, systolic function and wall thickness, with no regional wall motion abnormalities. Left ventricular ejection fraction is estimated at 70 %. Normal diastolic function. 2. No significant valvular abnormality. 3. No change when compared to study dated 02/07/23. Alicia Sutton MD (Electronically Signed) Final Date: 15 May 2023 12:06 S
[2023-05-13 12:25] LABS: Troponin 5 2HR 35.72 ng/L (0-10)
[2023-05-13 12:26] LABS: Troponin 5 2HR Delta 1.72 ABS# (0-10)
[2023-05-13] MEDS: heparin 5,000 unit/mL INJ 1 mL 4000 UNIT IVP (12:40)
[2023-05-13 12:53] LABS: Partial Thromboplastin Time 32.9 SECONDS (23.9-36.7)
[2023-05-13] MEDS: heparin drip 25,000 UNIT/500 ML PREMIX 66.93 UNIT IV (14:38)
--- NOTE | 2023-05-13 15:14 | P.HP_ITS ---
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 The margins were negative for invasive carcinoma. There was no involvement into sentinel lymph nodes. With high risk Oncotype, she was advised to undergo adjuvant chemotherapy. She is s/p 4 cycles of treatment with?Adriamycin/cyclophosphamide completed on 03/26/23. On 04/30/2023 she had started radiation to the right breast. On 04/29 she noted swelling in her right leg. She also had dyspnea at that [facility] to be related to chemotherapy. She was started On eliquis which she has been taking since one week. . She came in today for planned radiation and was noted to have increased dyspnea. On CTA today she was found to have Extensive pulmonary embolus in the distal LEFT main pulmonary artery extending into the segmental and subsegmental pulmonary arteries throughout the LEFT lung. Less extensive right-sided pulmonary emboli. Evidence of RIGHT heart strain. No acute pulmonary infiltrates. Review of Systems General: Reports: 10 or more systems reviewed and unremarkable except in HPI and below Const: Denies: fever(s), chills or body aches Eyes: Denies: change in vision, blurry vision or photophobia ENMT: Reports: hoarseness; Denies: throat pain, enlarged tonsils, odynophagia or nasal congestion Card: Denies: chest pain, palpitations, irregular heart rhythm, edema, s welling of feet/ankles, lightheadedness, pre-syncope, dyspnea on exertion or orthopnea Resp: Denies: dyspnea, productive cough, non-productive cough, wheezing, stridor, pain on inspiration, change in phlegm color, hemoptysis or chest congestion GI: Denies: abdominal pain, nausea, vomiting, hematemesis, coffee ground emesis, dysphagia, heartburn, diarrhea, constipation, GI cramping, change in stool character, hematochezia or melena : Denies: flank pain, difficulty voiding, dysuria, urinary frequency, uri nary urgency, urinary hesitancy or hematuria Musc: Denies: neck pain, back pain, extremity pain, joint swelling, joint warmth or deformity Neuro: Denies: headache(s), numbness in extremities, weakness in extremities, sensory changes, difficulty walking, frequent falls, dizziness, vertigo, behavioral changes, Slurred speech present or seizure-like activity Psych: Denies: anxiety, depression, suicidal ideation or homicidal ideation Endo: Denies: polyuria, polydipsia, tired all the time, cold intolerance or hot flashes Romero/Lymph: Denies: easy bruising or easy bleeding Medications/Allergies Home Medications Medication Instructions Recorded Confirmed Last Taken Type lorazepam 1 mg tablet 0.5 - 1 mg PO Q6H PRN Severe 02/08/23 05/13/23 Unknown Rx Nausea #30 tabs prochlorperazine maleate 10 mg 10 mg PO Q4H PRN Mild Nausea #30 02/08/23 05/13/23 Unknown Rx tablet (Compazine) tabs apixaban 5 mg (74 tabs) tablets in See Rx Instructions PO PER PKG DIR 05/08/23 05/13/23 05/13/23 Rx a dose pack (Eliquis DVT-PE Treat #74 ea on 6th day 30D Start) apixaban 5 mg tablet (Eliquis) 5 mg PO BID #60 tabs 05/08/23 05/13/23 Unknown Rx ciprofloxacin HCl 500 mg tablet 500 mg PO BID #10 tabs 05/09/23 05/13/23 05/13/23 Rx acetaminophen 500 mg tablet 1,000 mg PO Q6H PRN Pain 05/13/23 05/13/23 05/09/23 History amlodipine 5 mg tablet 5 mg PO BEDTIME 05/13/23 05/13/23 05/12/23 History cholecalciferol (vitamin D3) 1,250 50,000 unit PO Q7D 05/13/23 05/13/23 05/13/23 History mcg (50,000 unit) capsule cyclobenzaprine 10 mg tablet 10 mg PO DAILY PRN sciatica pain 05/13/23 05/13/23 Unknown History hydrochlorothiazide 25 mg tablet 25 mg PO QAM 05/13/23 05/13/23 05/13/23 History pantoprazole 40 mg tablet,delayed 40 mg PO QAM 05/13/23 05/13/23 05/13/23 History release (Protonix) Allergies Allergy/AdvReac Type Severity Reaction Status Date / Time Penicillins Allergy hives Verified 05/13/23 09:29 PFSH Acute PFSH: Medical History History of recurrent urinary tract infection Hypertension Left sided sciatica Vitamin D deficiency Surgical History H/O right breast biopsy (11/29/22) History of section History of tonsillectomy Status post right breast lumpectomy (01/02/23) Right breast lumpectomy with axillary sentinel lymph node biopsy Family History Father Cancer Mother Diabetes CHF (congestive heart failure) Hypertension Social History Smoking and tobacco status: never smoked Alcohol intake: never Substance/Drug Use: never Adopted: No Caregiver/support person: No Lives independently: No Household members: spouse Marital status: service: No Current occupational status: retired Sexually active: Yes Do you think of yourself as: Straight/Heterosexual Current gender identity: Female Vitals/I&O/Wt Last Vital Signs Temp 98.8 F 05/13/23 09:24 Pulse 80 05/13/23 14:43 Resp 16 05/13/23 14:43 BP 152/94 05/13/23 14:43 Pulse Ox 99 05/13/23 14:43 O2 Del Method Room Air 05/13/23 14:43 Weight last 48 hrs Weight 107.955 kg Physical Exam Narrative: General: No acute distress, AO x3 HEENT: PERRLA, pupils bilaterally equal and reactive, pallors not present Chest: Normal vesicular breath sounds, no added sounds, equal good air entry bilaterally CVS: S1-S2 regular, no murmurs, no tachycardia, no gallops, no rubs Abdomen: Soft, nontender, no organomegaly, bowel sounds present Neuro: No focal deficits, no facial deformity, AO x3, power 5/5 in all limbs Data 05/13/23 09:52 05/13/23 09:52 Other data: [address] [place] [address] CT Scan Report Signed Patient: Fanny Will Unit #: [id number] : 1960 Age/Sex: 63 / F ADM Date: 05/13/23 Loc: ER Room/Bed: Attending Dr: Ordering Provider/Ordering MD: Kary Martin Date of Service: 05/13/23 Procedure(s): CT angio chest PE protcl [id number] Accession Number(s): [id number] Report Number: [id number] WS: [id number] CTA OF THE CHEST WITH PULMONARY EMBOLISM PROTOCOL TECHNIQUE: High-resolution contrast enhanced CTA of the chest with coronal and sagittal reformatted images with pulmonary embolism protocol. MIP images are also reviewed. CLINICAL INFORMATION: sob, known extensive R LE DVT COMPARISON: None. DLP: 852.[address] [facility] use at least one of these dose optimization techniques: automated exposure control; mA and/or kV adjustment per patient size (includes targeted exams where dose is matched to clinical indication); or iterative reconstruction. FINDINGS: Acute pulmonary embolus bilaterally. Filling defects in the distal LEFT main pulmonary artery with extensive pulmonary embolus in the LEFT segmental and subsegmental pulmonary arteries. Less prominent embolus in the RIGHT distal main pulmonary artery extending into the segmental and subsegmental pulmonary arteries. Evidence of RIGHT heart strain with mild bowing of the LEFT ventricle. Normal caliber thoracic aorta. Small nodule LEFT lower lobe measuring 5 mm at the diaphragm. Additional small pulmonary nodule LEFT lower lobe medially measuring 4 mm. Tiny groundglass nodules in the RIGHT middle lobe measuring 4 mm. No acute pulmonary infiltrates. Small calcified LEFT thyroid nodule. No mediastinal or hilar lymphadenopathy. Diffuse fatty filtration of the liver. Cholelithiasis. Adrenal glands are normal. Fatty atrophy of the pancreas. Normal GE junction. Hypertrophic changes thoracic spine. Prior postoperative changes RIGHT breast and axilla. IMPRESSION: 1.? Extensive pulmonary embolus in the distal LEFT main pulmonary artery extending into the segmental and subsegmental pulmonary arteries throughout the LEFT lung. Less extensive right-sided pulmonary emboli. 2.? Evidence of RIGHT heart strain. Recommend correlation with echocardiography. 3.? No acute pulmonary infiltrates. 4.? A few noncalcified subcentimeter pulmonary nodules. Recommend 12-month f ollow-up chest CT. ?CONCLUSIONS ?Acute right lower extremity deep venous thrombosis. ?Extensive occlusive DVT. 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 She has been on Eliquis over the past week but continued to have dyspnea and presented here Admit to ICU in view of large clot burden, progressive symptoms and rigth heart strain Started on heparin gtt after discussion with ER provider Montior closely for any interval deterioration of respiratory status, may need transfer to higher center in case of hemodynamic instability for consideration for Echocardiogram taken given concern for right sided heart starin prn morhphine for pain control supplemental 02 to keep saturation > 92% Will discuss with patient's outpatient oncologist regarding switch to potentially lovenox when nearing discharge Attestations Medical Necessity Statement*: > 2 midnight admission is anticipated for above defined care Coding Level of Care Code Acute Code for Chg Fwd Diagnoses Bilateral pulmonary embolism I26.99 Acute embolism and thrombosis of unspecified deep veins of right lower extremity I82.401 Infiltrating ductal carcinoma of upper-outer quadrant of right breast in female C50.411
--- NOTE | 2023-05-13 15:55 | ECG_ITS ---
[facility] Test Date: 2023-05-13 Pat Name: Fanny Will Department: Room: ICU01 Gender: Female Principal Engineer: : 1960 Requested By: Kary Martin Order Number: [id number] Jael MD: Osmel Mendes M.D. Measurements Intervals Loman Rate: 74 P: 51 UT: 189 QRS: -1 QRSD: 85 T: 9 QT: 388 QTc: 433 Interpretive Statements SINUS RHYTHM LOW QRS VOLTAGE IN PRECORDIAL LEADS [QRS DEFLECTION < 1.0 mV IN CHEST LEADS] Compared to ECG 05/13/2023 12:02:19 Low QRS voltage now present Electronically Signed On 05-13-2023 23:44:03 CDT by Osmel Mendes M.D. [id number]
[2023-05-13 16:11] LABS: Troponin 5 6HR 39.63 ng/L (0-10)
[2023-05-13 16:14] LABS: Troponin 5 6HR Delta 5.63 ng/L (0-12)
--- NOTE | 2023-05-13 19:00 | PC.NURSE ---
Heparin Upon assessment of patient, heparin drip administering at 31 mls/hr (14 units/kg/hr) while MAR displays 31 units/kg/hr. MAR updated to reflect actual medication administration. See MAR for details.
[2023-05-13] MEDS: amlodipine 5 mg Tablet PO (20:03)
[2023-05-13 20:36] LABS: Partial Thromboplastin Time 125.2 SECONDS (23.9-36.7)
[2023-05-14] VITALS (34 sets, daily range): BP systolic 111–182; BP diastolic 62–145; PULSE 73–96; RESP 12–23; TEMP 36.9; O2SAT 90–100; BMI 36.1
[2023-05-14 02:30] LABS: Basophils # 0.1 10^3/uL (0.0-0.1); Basophils % 1.3 %; Eosinophils # 0.3 10^3/uL (0.0-0.8); Hematocrit 41.4 % (36-47); Lymphocytes # 1.7 10^3/uL (0.8-4.8); Lymphocytes % 24.6 %; Mean Corpuscular HGB Conc 33.6 g/dL (30-55); Mean Corpuscular Hemoglobin 34.5 pg (27-33); Mean Corpuscular Volume 102.7 fl (85-98); Mean Platelet Volume 9.9 fL (7.4-10.4); Monocytes # 0.8 10^3/uL (0.2-0.9); Monocytes % 12.5 %; Neutrophils # 3.84 10^3/uL (1.8-7.7); Neutrophils % 57.3 %; Nucleated Red Blood Cells % 0 %; Platelet Count 188 10^3/cmm (157-399); Red Blood Count 4.03 10^6/uL (3.85-5.65); Red Cell Distribution Width 14.8 % (12.1-15.1); White Blood Count 6.71 10^3/uL (3.29-11.43)
[2023-05-14 02:48] LABS: Alanine Aminotransferase 24 U/L (0-33); Albumin Level 3.8 g/dL (3.5-5.2); Alkaline Phosphatase 67 U/L (35-105); Blood Urea Nitrogen 13 mg/dL (8-23); Calcium 9.6 mg/dL (8.5-10.5); Carbon Dioxide 22 mmol/L (22-29); Chloride 99 mmol/L (98-107); Globulin 2.9 g/dL (1.3-4.6); Glomerular Filtration Rate 72.4 mL/min (90-130); Glucose 111 mg/dL (65-115); Osmolality Calculated 281 mOsm/kg (285-295); Sodium 135 mmol/L (136-145); Total Bilirubin 0.7 mg/dL (0.15-1.2); Total Protein 6.7 g/dL (6.6-8.7)
[2023-05-14 02:51] LABS: Partial Thromboplastin Time 101.8 SECONDS (23.9-36.7)
[2023-05-14 02:54] LABS: Anion Gap 17.7 (5-19); Aspartate Amino Transferase 33 U/L (0-32); Potassium 3.7 mmol/L (3.5-5.1)
[2023-05-14] MEDS: pantoprazole DR 40 mg Tablet PO (05:12)
[2023-05-14 09:31] LABS: Partial Thromboplastin Time 52.9 SECONDS (23.9-36.7)
[2023-05-14] MEDS: heparin drip 25,000 UNIT/500 ML PREMIX 21 UNIT IV (09:37)
--- NOTE | 2023-05-14 14:47 | PM.PN ---
Subjective Subjective: No new complaints today. Currently saturating well on room air. Had some midsternal chest discomfort overnight but this has since resolved. SBP running 144-182 mmHG. Medications: Reviewed: Yes Vitals/I&O/Wt Last Vital Signs Temp 98.4 F 05/14/23 04:00 Pulse 83 05/14/23 14:30 Resp 13 05/14/23 14:30 BP 169/102 05/14/23 14:30 Pulse Ox 93 05/14/23 14:30 O2 Del Method Room Air 05/14/23 04:00 05/13/23 05/14/23 05/14/23 22:59 06:59 14:59 Intake Total 345.478 / 345.478 154.522 / 500.000 700 / 700 Output Total 500 / 500 500 / 1000 Balance -154.522 / -154.522 -345.478 / -500.000 700 / 700 Weight last 48 hrs Weight 108 kg Weight 107.955 kg Physical Exam Narrative: General: No acute distress, AO x3 HEENT: PERRLA, pupils bilaterally equal and reactive, pallors not present Chest: Normal vesicular breath sounds, no added sounds, equal good air entry bilaterally CVS: S1-S2 regular, no murmurs, no tachycardia, no gallops, no rubs Abdomen: Soft, nontender, no organomegaly, bowel sounds present Neuro: No focal deficits, no facial deformity, AO x3, power 5/5 in all limbs Extremities: no edema, clubbing or cyanosis, RLE swelling appears improving Data 05/14/23 02:20 05/14/23 02:20 A&P Assessment and plan (1) Bilateral pulmonary embolism: (2) Acute embolism and thrombosis of unspecified deep veins of right lower extremity: (3) Infiltrating ductal carcinoma of upper-outer quadrant of right breast in female: Plan 63-year-old female with a history of breast cancer status postlumpectomy, currently undergoing radiation, presenting with large B/L PE, RLE DVT. Failure of Eliquis as outaptient which she had been taking for a week prior. Unclear timeline of events as patient states she has been dyspneic intermittently since March 2023 however RLE swelling did not appear until much recently. Since symptoms appeared to have progressed while on Eliquis, safest course of action will be to transition to s/c lovenox at time of discharge. discussed with outpatient heme/onc Dr. Orosco PLan to continue heparin gtt over the next 24 hrs and if patient remains clinically stable, plan to discharge on s/c lovenox Echocardiogram taken given concern for right sided heart strain, results pending prn morhphine for pain control supplemental 02 to keep saturation > 92% Increase amlodipine to 10 mg daily and resume HCTZ for uncontrolled BP Transfer from ICU to CSU today Attestations Medical Necessity Statement*: continue heparin gtt , lanned transition to s/c lovenox in the next 24 hrs, pending echo Coding Level of Care Code Acute Code for Chg Fwd Diagnoses Bilateral pulmonary embolism I26.99 Acute embolism and thrombosis of unspecified deep veins of right lower extremity I82.401 Infiltrating ductal carcinoma of upper-outer quadrant of right breast in female C50.411
[2023-05-14 15:02] LABS: Partial Thromboplastin Time 52.4 SECONDS (23.9-36.7)
--- NOTE | 2023-05-14 15:58 | PC.NURSE ---
Patient arrived from ICU via wheelchair, patient is alert and oriented. Nurse will continue to monitor
[2023-05-14] MEDS: amlodipine 5 mg Tablet 10 MG PO (21:40)
[2023-05-14 22:07] LABS: Partial Thromboplastin Time 57.1 SECONDS (23.9-36.7)
[2023-05-15] VITALS (7 sets, daily range): BP systolic 100–123; BP diastolic 70–86; PULSE 72–86; RESP 15–26; TEMP 36.9–37.1; O2SAT 93–97
--- NOTE | 2023-05-15 02:56 | PC.NURSE ---
No change to heparin gtt per heparin protocol. Heparin currently running at 23mL/hr.
[2023-05-15 05:15] LABS: Platelet Count 179 10^3/cmm (157-399)
[2023-05-15 05:27] LABS: Partial Thromboplastin Time 57.6 SECONDS (23.9-36.7)
[2023-05-15] MEDS: hydroCHLOROthiazide 25 mg Tablet PO (06:06)
[2023-05-15] MEDS: pantoprazole DR 40 mg Tablet PO (06:06)
[2023-05-15] MEDS: enoxaparin 100 mg/mL Syringe SUBCUT (10:54)
--- NOTE | 2023-05-15 15:01 | PM.DCS ---
Discharge Providers Date of Admission: 05/13/23 12:35 Date of Discharge: May 15, 2023 Attending Provider at Admission: Vy Jimenes MD Attending Provider at Discharge: Vy Jimenes MD Primary Care Provider: GILLES Webster Diagnoses at Discharge Discharge Diagnosis (1) Bilateral pulmonary embolism: Status: Acute (2) Acute embolism and thrombosis of unspecified deep veins of right lower extremity: Status: Acute (3) Infiltrating ductal carcinoma of upper-outer quadrant of right breast in female: Status: Acute Reason for Visit Reason for Visit: sent from onc, possible blood clot Hospital Course Hospital Course 63-year-old female with a history of breast cancer as above status postlumpectomy, currently on radiation therapy, recent history of right lower extremity occlusive DVT for which she had been started on Eliquis. Patient presented to the hospital with worsening shortness of breath and chest discomfort and was found to have bilateral pulmonary embolism. Since her symptoms progressed while she had already been started on Eliquis, anticoagulation was changed from Eliquis to enoxaparin 1 mg/kg every 12 hours. During her hospital stay she was started on heparin drip due to large burden of PE, she was monitored closely with regards to her respiratory status and hemodynamics. She remained stable over 48 hours, remained on room air and was then transition to subcutaneous Lovenox at the time of discharge. Plan was discussed with her outpatient oncologist Dr. Orosco. Patient is to follow-up with radiation oncology on Saturday to resume her radiation treatment. Physical Exam Narrative: General: No acute distress, AO x3 HEENT: PERRLA, pupils bilaterally equal and reactive, pallors not present Chest: Normal vesicular breath sounds, no added sounds, equal good air entry bilaterally CVS: S1-S2 regular, no murmurs, no tachycardia, no gallops, no rubs Abdomen: Soft, nontender, no organomegaly, bowel sounds present Neuro: No focal deficits, no facial deformity, AO x3, power 5/5 in all limbs Discharge Data Studies Completed and Pending Completed Studies During Hospitalization Category Date Time Status CTA chest [CT angio chest PE protcl [id number]] Stat Cat Scan 05/13/23 09:54 Completed XR chest 1V portable 20242 Stat Exams 05/13/23 12:13 Completed CV. echo complete* [id number] Stat Ultrasound 05/13/23 12:22 Completed US venous duplex upper extremity RT [CV venous duplex Ultrasound 05/13/23 11:[address] [place] [id number]] Stat Laboratory Results WBC 6.71 10^3/uL (3.29-11.43) 05/14/23 02:20 RBC 4.03 10^6/uL (3.85-5.65) 05/14/23 02:20 Hgb 13.90 g/dL (11.27-16.99) 05/14/23 02:20 Hct 41.4 % (36-47) 05/14/23 02:20 MCV 102.7 fl (85-98) H 05/14/23 02:20 MCH 34.5 pg (27-33) H 05/14/23 02:20 MCHC 33.6 g/dL (30-55) 05/14/23 02:20 RDW 14.8 % (12.1-15.1) 05/14/23 02:20 Plt Count 179 10^3/cmm (157-399) 05/15/23 04:34 MPV 9.9 fL (7.4-10.4) 05/14/23 02:20 Neut % (Auto) 57.3 % 05/14/23 02:20 Lymph % (Auto) 24.6 % 05/14/23 02:20 [place] % (Auto) 12.5 % 05/14/23 02:20 Eos % (Auto) 4.0 % 05/14/23 02:20 Baso % (Auto) 1.3 % 05/14/23 02:20 Neut # (Auto) 3.84 10^3/uL (1.8-7.7) 05/14/23 02:20 Lymph # (Auto) 1.7 10^3/uL (0.8-4.8) 05/14/23 02:20 [place] # (Auto) 0.8 10^3/uL (0.2-0.9) 05/14/23 02:20 Eos # (Auto) 0.3 10^3/uL (0.0-0.8) 05/14/23 02:20 Baso # (Auto) 0.1 10^3/uL (0.0-0.1) 05/14/23 02:20 Nucleated RBC % (auto) 0 % 05/14/23 02:20 Nucleated RBCs # 0.0 /100WBC 05/14/23 02:20 PT 20.60 SECONDS (12.1-14.9) H 05/13/23 09:52 INR 1.70 (0.8-1.2) H 05/13/23 09:52 APTT 57.6 SECONDS (23.9-36.7) H 05/15/23 04:34 Sodium 135 mmol/L (136-145) L 05/14/23 02:20 Potassium 3.7 mmol/L (3.5-5.1) 05/14/23 02:20 Chloride 99 mmol/L (98-107) 05/14/23 02:20 Carbon Dioxide 22 mmol/L (22-29) 05/14/23 02:20 Anion Gap 17.7 (5-19) 05/14/23 02:20 BUN 13 mg/dL (8-23) 05/14/23 02:20 Creatinine 0.8 mg/dL (0.5-0.9) 05/14/23 02:20 GFR Calculation 72.4 mL/min (90-130) L 05/14/23 02:20 Glucose 111 mg/dL (65-115) 05/14/23 02:20 Calculated Osmolality 281 mOsm/kg (285-295) L 05/14/23 02:20 Calcium 9.6 mg/dL (8.5-10.5) 05/14/23 02:20 Total Bilirubin 0.7 mg/dL (0.15-1.2) 05/14/23 02:20 AST 33 U/L (0-32) H 05/14/23 02:20 ALT 24 U/L (0-33) 05/14/23 02:20 Alkaline Phosphatase 67 U/L (35-105) 05/14/23 02:20 Troponin T Baseline 34 ng/L (0-10) H 05/13/23 09:52 Troponin T 120 Minute 35.72 ng/L (0-10) H 05/13/23 11:49 Delta Troponin T 1.72 ABS# (0-10) 05/13/23 11:49 Troponin T Hi Sens 6Hr 39.63 ng/L (0-10) H 05/13/23 15:45 Troponin T Hi Sens 6Hr Delta 5.63 ng/L (0-12) 05/13/23 15:45 NT-Pro-B Natriuret Pep 127 pg/mL (0-125) H 05/13/23 09:52 Total Protein 6.7 g/dL (6.6-8.7) 05/14/23 02:20 Albumin 3.8 g/dL (3.5-5.2) 05/14/23 02:20 Globulin 2.9 g/dL (1.3-4.6) 05/14/23 02:20 Vitals Last Vital Signs Temp 98.8 F 05/15/23 13:39 Pulse 82 05/15/23 13:39 Resp 26 H 05/15/23 13:39 BP 113/70 05/15/23 13:39 Pulse Ox 94 05/15/23 14:14 O2 Del Method Room Air 05/15/23 11:37 Discharge Plan Discharge Patient Disposition: Home Condition: Stable Prescriptions: New Lovenox 100 mg/mL syringe 100 mg SUBCUT Q12H 7 Days Qty: 14 1RF Lovenox 100 mg/mL syringe 100 mg SUBCUT Q12H 30 Days Qty: 60 2RF Continued prochlorperazine maleate [Compazine] 10 mg tablet 10 mg PO Q4H PRN (Reason: Mild Nausea) Qty: 30 3RF lorazepam 1 mg tablet 0.5 - 1 mg PO Q6H PRN (Reason: Severe Nausea) Qty: 30 3RF acetaminophen 500 mg Tablet 1,000 mg PO Q6H PRN (Reason: Pain) cyclobenzaprine 10 mg tablet 10 mg PO DAILY PRN (Reason: sciatica pain) amlodipine 5 mg tablet 5 mg PO BEDTIME Protonix 40 mg tablet,delayed release (DR/EC) 40 mg PO QAM hydrochlorothiazide 25 mg tablet 25 mg PO QAM Discontinued Eliquis DVT-PE Treat 30D Start 5 mg (74 tabs) tablets,dose pack See Rx Instructions PO PER PKG DIR Qty: 74 0RF Rx Instructions: PO PER PKG DIR Eliquis 5 mg tablet 5 mg PO BID Qty: 60 5RF Rx Instructions: pt states she is still on the starter pack on the 6th day 05/13/23 ciprofloxacin HCl 500 mg tablet 500 mg PO BID Qty: 10 0RF Rx Instructions: for 5 days (rx filled 05/09/23) cholecalciferol (vitamin D3) 1,250 mcg (50,000 unit) capsule 50,000 unit PO Q7D Rx Instructions: on saturday Discharge Orders: Discharge Order (Routine); Ordered 05/15/23 Ordered By: Vy Jimenes Referrals: Ruel Howard FNP [Primary Care Provider] - 05/21/23 2:20 pm (You have an appointment to see Ruel Howard on at 2:20P.M. If you are not able to keep this appointment, please call [facility] to reschedule at [phone].) Alfonso Orosco MD [Hospitalist] - 05/28/23 11:30 am (You have a follow up appointment scheduled to see Dr. Orosco on May 28 at 11:30A.M. IF you are unable to keep this appoibntment and need to reschedule, please call the Oncology Clinic at [phone].) Discharge Diet: Usual diet Discharge Activity: Resume usual activity Patient Instructions: Enoxaparin (By injection) (Lovenox), Pulmonary Embolism (DC), Deep Vein Thrombosis (DC), Anticoagulation Therapy, Opioid Safety, Pain Management, Pulmonary Embolism Activity Restrictions/Additional Instructions: May resume radiation treatments on SaturdayMay 20. Discharge Attestations Time Spent in Discharge Care*: greater than 30 min Quality Metrics Clinical Quality Measures [ Venous Thromboembolism { Contraindication to Overlap Therapy: None; Overlap threrpy ordered; VTE Discharge Education: Education about anticoagulant therapy/Care Notes given; Deep Vein Thrombosis/Pulmonary Embolism Present on Admission: Yes;}] Coding Level of Care Code Acute Code for Chg Fwd Diagnoses Bilateral pulmonary embolism I26.99 Acute embolism and thrombosis of unspecified deep veins of right lower extremity I82.401 Infiltrating ductal carcinoma of upper-outer quadrant of right breast in female C50.411
--- NOTE | 2023-05-15 16:07 | PC.NURSE ---
Discharge Note Patient discharged to [home] via [w/c to POV] accompanied by [spouse]. Discharge instructions reviewed with patient and/or warehouse representative. Mobile pharmacy medications and/or prescriptions provided. Belongings/home medications returned.
== END 2023-05-15 14:55 | disposition home or self-care (01) | DRG 176 ==
LOC: ER 12:27 → ICU 13:05 → CSU 05-14 15:51
PROVIDERS: Family Medicine; Admitting Provider Student in an Organized Health Care Education/Training Program; Emergency Provider Physician Assistant; PCP Registered Nurse; Visit Provider Student in an Organized Health Care Education/Training Program
DX: I26.94 Multiple subsegmental thrombotic pulmonary emboli without acute cor pulmonale (principal); I82.401 Acute embolism and thrombosis of unspecified deep veins of right lower extremity; I82.611 Acute embolism and thrombosis of superficial veins of right upper extremity; C50.411 Malignant neoplasm of upper-outer quadrant of right female breast; Z79.899 Other long term (current) drug therapy; Z95.828 Presence of other vascular implants and grafts; Z87.440 Personal history of urinary (tract) infections; I10 Essential (primary) hypertension; M54.32 Sciatica, left side
CPT/HCPCS: 36415; 71045; 71275; 77336; 77412; 80053; 83880; 84484; 85025; 85049; 85610; 85730; 93005; 93306; 93971; 94664; 94760; 96365; 96366; 96372; 96375; 99214; 99285; J1644; J1650; Q9967

== ENCOUNTER 2023-05-30 08:34 | Oncology outpatient (recurring) (ONCR) | payer OTHER, SELFPAY ==
--- NOTE | 2023-05-21 12:38 | ONCRAD TMN_ITS ---
Radiation Oncology Weekly Treatment Management Patient: Fanny Will> MR#: [id number] : 1960> Attending Physician: Gurmeet Lehman Date of Service: 05/21/2023 Referring Physician(s) : Diagnosis: C50.411 - Malignant neoplasm of upper-outer quadrant of right female breast, Diagnosed 04/17/2023 (Active) Radiotherapy to date: Course: RT Breast 2022, Treatment Site: RtBreast, Ref. ID: RtBreast, Energy: 15X/6X, Dose/Fx (cGy): 266, #Fx: , Dose Correction (cGy): 0, Total Dose (cGy): 3,192, Start Date: 04/30/2023, Elapsed Days: 21 Reason for visit: The patient is being seen today as part of their regularly scheduled weekly on treatment visits to assess for acute toxicities from radiotherapy. Review of Systems: DC???d from hospital from treatment for PE arising from extensive DVT. She was on oral Eliquis. Now DC on sub cutaneous Lovonox BID. She will be on this for 3 months. Feeling better overall. No skin sxs. Vital Signs: Performed on 05/21/2023 8:34 AM BMI - 36.218 kg/m2 (high), Height - 68 in, Weight - 238.2 lbs, Temperature - 97.0 f, Pulse - 85 /min, Respiration - 16 /min, O2 Sat - 98 %, Pain - 0, Fatigue - 0 and BP - 110/ 62 mm(hg)(/low). Physical Exam: Imaging: Radiation therapy imaging related to accurate target localization (i.e. KV, MV and CBCT) was reviewed. Appropriate changes, if any, were made to ensure treatment accuracy. Plan: Good tolerance of treatment. Continue as planned. Signed by: Gurmeet Lehman 05/21/2023 12:37:21 PM Telemedicine Consent Patient seen today via Telemedicine by agreement and consent of patient. Telemedicine technology used during the visit include audio and, as available, review of images. This patient encounter is appropriate and reasonable under the circumstances given the patient???s particular presentation at this time. The patient has been advised of the potential risks and limitations of this mode of treatment (including but not limited to the absence of in-person examination) and has agreed to be treated in a remote fashion in spite of them. Any and all of the patient???s/patient???s family???s questions on this issue have been answered and I have made no promises or guarantees to the patient. The patient has also been advised to contact this office for worsening conditions or problems, and seek emergency medical treatment and/or call 911 if the patient deems either necessary.
--- NOTE | 2023-05-29 09:08 | ONCRAD TMN_ITS ---
Radiation Oncology Weekly Treatment Management Patient: Suman Escobedo#: [id number] : 1960 Attending Physician: Gurmeet Lehman Date of Service: 05/28/2023 Referring Physician(s) : Diagnosis: C50.411 - Malignant neoplasm of upper-outer quadrant of right female breast, Diagnosed 04/17/2023 (Active) Radiotherapy to date: Course: RT Breast 2022, Treatment Site: RtBreast, Ref. ID: [id number], Energy: 15X/6X, Dose/Fx (cGy): 266, #Fx: / 16, Dose Correction (cGy): 0, Total Dose (cGy): 4,256, Start Date: 04/30/2023, End Date: 05/27/2023, Elapsed Days: 27 Course: RT Breast 2022, Treatment Site: [id number], Ref. ID: [id number], Energy: 15X/6X, Dose/Fx (cGy): 250, #Fx: 1 / 4, Dose Correction (cGy): 0, Total Dose (cGy): 250, Start Date: 05/28/2023, Elapsed Days: 0 Reason for visit: The patient is being seen today as part of their regularly scheduled weekly on treatment visits to assess for acute toxicities from radiotherapy. Review of Systems: Doing well overall. Breathing ok. No CP. On Lovonox. She had fever cough and sore throat and now began antibiotics. Vital Signs: Performed on 05/28/2023 9:25 AM BMI - 36.583 kg/m2 (high), Height - 68 in, Weight - 240.6 lbs, Temperature - 98.9 f, Pulse - 95 /min, Respiration - 17 /min, O2 Sat - 97 %, Pain - 2, Fatigue - 5 and BP - 186/ 82 mm(hg)(high/). Physical Exam: Imaging: Radiation therapy imaging related to accurate target localization (i.e. KV, MV and CBCT) was reviewed. Appropriate changes, if any, were made to ensure treatment accuracy. Plan: Good tolerance of treatment. She will finish this week. FU in 1 month. Signed by: Gurmeet Lehman 05/29/2023 9:07:29 AM Telemedicine Consent Patient seen today via Telemedicine by agreement and consent of patient. Telemedicine technology used during the visit include audio and, as available, review of images. This patient encounter is appropriate and reasonable under the circumstances given the patient???s particular presentation at this time. The patient has been advised of the potential risks and limitations of this mode of treatment (including but not limited to the absence of in-person examination) and has agreed to be treated in a remote fashion in spite of them. Any and all of the patient???s/patient???s family???s questions on this issue have been answered and I have made no promises or guarantees to the patient. The patient has also been advised to contact this office for worsening conditions or problems, and seek emergency medical treatment and/or call 911 if the patient deems either necessary.
--- NOTE | 2023-06-02 10:56 | N.ONRD TS_ITS ---
Radiation Oncology Treatment Summary Patient: Suman>Fanny> MR#: [id number] : 1960> Age: 63> Sex: Female Dictated by: Gurmeet Lehman Date of Service: 05/31/2023 Referring Physician(s) : Diagnosis: C50.411 - Malignant neoplasm of upper-outer quadrant of right female breast, Diagnosed 04/17/2023 (Active) Radiotherapy to Date: Course: RT Breast 2022, Treatment Site: RtBreast, Ref. ID: [id number], Energy: 15X/6X, Dose/Fx (cGy): 266, #Fx: 16 / 16, Dose Correction (cGy): 0, Total Dose (cGy): 4,256, Start Date: 04/30/2023, End Date: 05/27/2023, Elapsed Days: 27 Treatment Site: [id number], Ref. ID: [id number], Energy: 15X/6X, Dose/Fx (cGy): 250, #Fx: 4 / 4, Dose Correction (cGy): 0, Total Dose (cGy): 1,000, Start Date: 05/28/2023, End Date: 05/31/2023, Elapsed Days: 3 Clinical Summary: The patient tolerated RT well. She was hospitalized for DVT migrating to PE while on Eliquis. She was then switched to subcut Lovonox. She then resumed treatment. Toward the end of treatment she had a fever and cough. Antibiotics were initiated and symptoms resolved. She had minimal skin toxicity at the conclusion of treatment. Plan: End of treatment today. Continue on the above medication until the skin reaction resolves. Follow up in one month. Signed by: Gurmeet Lehman>06/02/2023 10:54:56 AM <<Signature on File>>
== END 2023-06-11 23:59 | disposition home or self-care (01) ==
PROVIDERS: PCP Registered Nurse; Visit Provider Radiology Radiation Oncology
DX: C50.411 Malignant neoplasm of upper-outer quadrant of right female breast (principal); Z51.0 Encounter for antineoplastic radiation therapy; Z17.0 Estrogen receptor positive status [ER+]; Z92.21 Personal history of antineoplastic chemotherapy
CPT/HCPCS: 77014; 77336; 77387; 77412; 77427; 99024; 99214

== ENCOUNTER 2023-06-18 13:29 | Outpatient (CLI) | payer OTHER, SELFPAY ==
--- NOTE | 2023-06-18 14:00 | XR_ITS ---
WS: [id number] SCREENING DEXA SCAN [employer] CLINICAL INFORMATION: breast ca, vit d def COMPARISON: None. FINDINGS: The L1-L4 bone mineral density measures 1.477 g/cm2. This corresponds to a T score score of 2.5 and Z score of 2.8. Left femoral neck bone mineral density measures 1.058 g/cm2. This corresponds to a T score of 0.4 and Z score of 0.7. Right femoral neck bone mineral density measures 1.188 g/cm2. This corresponds to a T score 1.4of and Z score of 1.7. Mean femoral neck bone mineral density measures 1.123 g/cm2. This corresponds to a T score of 0.9 and Z score of 1.2. IMPRESSION: Normal bone mineralization. Patient's FRAX calculated 10 year probability for major osteoporotic fracture is 6.1% and osteoporoti c hip fracture is 0.2%.
== END 2023-06-18 13:30 | disposition home or self-care (01) ==
LOC: RAD 13:29
PROVIDERS: PCP Registered Nurse; Visit Provider Internal Medicine Medical Oncology
DX: C50.919 Malignant neoplasm of unspecified site of unspecified female breast (principal); E55.9 Vitamin D deficiency, unspecified
CPT/HCPCS: 77080

== ENCOUNTER 2023-07-01 08:40 | Oncology outpatient (recurring) (ONCR) | payer OTHER, SELFPAY ==
[2023-06-26 10:10] VITALS: BP 158/80; PULSE 78; RESP 16; TEMP 37.1; O2SAT 93
[2023-06-26 10:24] LABS: Basophils # 0.1 10^3/uL (0.0-0.1); Basophils % 1.5 %; Eosinophils # 0.3 10^3/uL (0.0-0.8); Eosinophils % 4.7 %; Hematocrit 44.9 % (36-47); Lymphocytes # 1.7 10^3/uL (0.8-4.8); Lymphocytes % 30.8 %; Mean Corpuscular HGB Conc 33.4 g/dL (30-55); Mean Corpuscular Volume 101.8 fl (85-98); Mean Platelet Volume 10.2 fL (7.4-10.4); Monocytes # 0.6 10^3/uL (0.2-0.9); Monocytes % 10.9 %; Neutrophils # 2.81 10^3/uL (1.8-7.7); Neutrophils % 51.4 %; Nucleated Red Blood Cells % 0 %; Platelet Count 237 10^3/cmm (157-399); Red Blood Count 4.41 10^6/uL (3.85-5.65); Red Cell Distribution Width 13.1 % (12.1-15.1); White Blood Count 5.48 10^3/uL (3.29-11.43)
[2023-06-26 10:41] LABS: Alanine Aminotransferase 39 U/L (0-33); Albumin Level 3.9 g/dL (3.5-5.2); Alkaline Phosphatase 60 U/L (35-105); Anion Gap 13.8 (5-19); Aspartate Amino Transferase 28 U/L (0-32); Blood Urea Nitrogen 15 mg/dL (8-23); Carbon Dioxide 25 mmol/L (22-29); Chloride 103 mmol/L (98-107); Globulin 3.1 g/dL (1.3-4.6); Glomerular Filtration Rate 72.4 mL/min (90-130); Glucose 116 mg/dL (65-115); Osmolality Calculated 288 mOsm/kg (285-295); Potassium 3.8 mmol/L (3.5-5.1); Sodium 138 mmol/L (136-145); Total Bilirubin 0.3 mg/dL (0.15-1.2)
[2023-06-26 10:57] LABS: 25 Hydroxy Vitamin D 61 ng/mL (30-100)
[2023-06-26 15:49] LABS: Vitamin B12 626 pg/mL (232-1245)
--- NOTE | 2023-07-01 10:04 | ONCRAD EPV_ITS ---
Radiation Oncology Established Patient Visit Patient: Suman Escobedo [id number] : 1960> Age: 63> Sex: Female> Dictated by: ClydeNoé ferreira Date of Service: 07/01/2023 Referring Physician(s) : Alfonso Orosco MD, Presley Marquez MD Diagnosis: C50.411 - Malignant neoplasm of upper-outer quadrant of right female breast, Diagnosed 04/17/2023 (Active) Breast, right, upper outer quadrant, invasive micropapillary carcinoma (2 foci), extensive intraductal component with positive deep margin, stage pT1c pN0 M0, ER strongly positive, MO weakly positive, HER2 negative, Ki-67 40% Radiotherapy to Date: Course: RT Breast 2022, Treatment Site: RtBreast, Ref. ID: [id number], Energy: 15X/6X, Dose/Fx (cGy): 266, #Fx: 16 / 16, Dose Correction (cGy): 0, Total Dose (cGy): 4,256, Start Date: 04/30/2023, End Date: 05/27/2023, Elapsed Days: 27 Treatment Site: [id number], Ref. ID: [id number], Energy: 15X/6X, Dose/Fx (cGy): 250, #Fx: 4 / 4, Dose Correction (cGy): 0, Total Dose (cGy): 1,000, Start Date: 05/28/2023, End Date: 05/31/2023, Elapsed Days: 3 Current History: Mrs. Will returns for follow-up. She has had multiple problems, but no specific problems related to her treated breast. However, she does state that she noted some discomfort in the lateral breast area after doing more housework than usual a few days ago. The discomfort has resolved. She has not noted any swelling of the breast or right upper extremity. She feels some ???lumpiness in the lateral area of the breast. She is scheduled to see Dr. Marquez in July and for mammography in September. She completed chemotherapy prior to receiving radiation to the breast. Hormonal therapy is planned. The patient developed a DVT with pulmonary embolus while on Eliquis. She is currently on Lovenox. Plans are to switch her to Coumadin. The patient's and son developed very symptomatic COVID. The patient had upper respiratory symptoms as well. She was not tested for COVID but was placed on treatment with Paxlovid and symptoms resolved. She has no other complaints today. Current Medications: AmLODIPine Besylate, cholecalciferol, ciprofloxacin HCl, cyclobenzaprine HCl, hydroCHLOROthiazide, levoFLOXacin, lORazepam, pantoprazole Sodium, prochlorperazine Maleate. Vital Signs: Performed on 07/01/2023 9:32 AM BMI - 36.735 kg/m2 (high), Height - 68 in, Weight - 241.6 lbs, Temperature - 97 f, Pulse - 78 /min, Respiration - 18 /min, O2 Sat - 94 % (low), Pain - 0, Fatigue - 0 and BP - 131/ 81 mm(hg). Physical Exam: General: Alert and oriented x 3. No acute distress. HEENT: Normocephalic, atraumatic. NECK: Supple without supraclavicular, jugular, or axillary lymphadenopathy. LUNGS: Clear to auscultation bilaterally without rales, rhonchi or wheeze. HEART: Regular rate and rhythm, normal S1 and S2 without murmur, gallop or rub. Breasts: The right breast has a good cosmetic result. There is no edema or surface abnormality.. The tumor bed is soft without nodularity or mass. No masses elsewhere in the breast. Just lateral to the breast the patient has a few nodules that are a few millimeters in size,subcutaneous and consistent with fat necrosis. No suspicious mass detected. Patient had very mild tenderness at the junction of the breast with the chest wall. There was nothing suspicious about the tenderness. The left breast is normal in appearance and free of masses. MUSCULOSKELETAL: No tenderness or percussion pain over the axial skeleton, scapulae or pelvis. ABDOMEN: Soft, nontender, nondistended without masses or organomegaly. Bowell sounds are present. EXTREMITIES: No peripheral edema is identified. The right calf is soft. No residual blood clot identified. No tenderness. Performance Status: KPS 80 Lab: None pending. Pathology: Primary, c50.411 - malignant neoplasm of upper-outer quadrant of right female breast, Diagnosed 04/17/2023 (active). Imaging: None Impression: Mrs. Will appears to be doing well. She currently has no pulmonary symptoms from the pulmonary emboli or COVID. She has a good cosmetic result of her right breast. She has a few nodules just lateral to the breast that likely represent fat necrosis. They are not suspicious for malignancy. I recommended that she keep her follow-up with Dr. Marquez in July. Unless he detects anything suspicious, she will have mammography in September. Plan: Return to the radiation center in 6 months. Signed by: 07/01/2023 10:03:09 AM <<Signature on File>> Time spent with patient: 20-minutes CPT Code: CPT Code:
== END 2023-07-11 23:59 | disposition home or self-care (01) ==
PROVIDERS: Internal Medicine; PCP Registered Nurse; Visit Provider Specialist
DX: C50.411 Malignant neoplasm of upper-outer quadrant of right female breast (principal); Z17.0 Estrogen receptor positive status [ER+]
CPT/HCPCS: 36415; 80053; 82306; 82607; 85025; 99024; 99215

== ENCOUNTER 2023-07-24 11:35 | Oncology outpatient (recurring) (ONCR) | payer OTHER, SELFPAY ==
[2023-07-24 12:15] VITALS: BP 138/99; PULSE 78; RESP 18; TEMP 36.7; O2SAT 98
[2023-07-24 12:31] LABS: Basophils # 0.1 10^3/uL (0.0-0.1); Basophils % 1.4 %; Eosinophils # 0.3 10^3/uL (0.0-0.8); Eosinophils % 4.3 %; Hematocrit 45.5 % (36-47); Lymphocytes # 2.2 10^3/uL (0.8-4.8); Lymphocytes % 35.9 %; Mean Corpuscular HGB Conc 33.4 g/dL (30-55); Mean Corpuscular Hemoglobin 33.6 pg (27-33); Mean Corpuscular Volume 100.4 fl (85-98); Mean Platelet Volume 10.4 fL (7.4-10.4); Monocytes # 0.6 10^3/uL (0.2-0.9); Monocytes % 9.3 %; Neutrophils % 48.5 %; Nucleated Red Blood Cells % 0 %; Platelet Count 235 10^3/cmm (157-399); Red Blood Count 4.53 10^6/uL (3.85-5.65); White Blood Count 6.21 10^3/uL (3.29-11.43)
[2023-07-24 12:58] LABS: Alanine Aminotransferase 56 U/L (0-33); Albumin Level 4.2 g/dL (3.5-5.2); Alkaline Phosphatase 60 U/L (35-105); Anion Gap 16.5 (5-19); Aspartate Amino Transferase 37 U/L (0-32); Blood Urea Nitrogen 14 mg/dL (8-23); Calcium 10.3 mg/dL (8.5-10.5); Carbon Dioxide 26 mmol/L (22-29); Chloride 101 mmol/L (98-107); Glomerular Filtration Rate 63.2 mL/min (90-130); Glucose 110 mg/dL (65-115); Osmolality Calculated 289 mOsm/kg (285-295); Potassium 4.5 mmol/L (3.5-5.1); Sodium 139 mmol/L (136-145); Total Bilirubin 0.4 mg/dL (0.15-1.2); Total Protein 7.2 g/dL (6.6-8.7)
[2023-07-24 13:15] LABS: Folate Level 10.6 ng/mL (4.8-37.3)
[2023-07-28 05:19] LABS: Methylmalonic Acid 394 nmol/L (87-318)
== END 2023-08-11 23:59 | disposition home or self-care (01) ==
PROVIDERS: Internal Medicine; PCP Registered Nurse; Visit Provider Specialist
DX: C50.411 Malignant neoplasm of upper-outer quadrant of right female breast (principal); Z17.0 Estrogen receptor positive status [ER+]; Z51.0 Encounter for antineoplastic radiation therapy; Z92.21 Personal history of antineoplastic chemotherapy; I26.99 Other pulmonary embolism without acute cor pulmonale; Z79.01 Long term (current) use of anticoagulants; I82.401 Acute embolism and thrombosis of unspecified deep veins of right lower extremity
CPT/HCPCS: 36415; 80053; 82746; 83921; 85025; 99214

== ENCOUNTER 2023-08-27 08:17 | Oncology outpatient (recurring) (ONCR) | payer OTHER, SELFPAY ==
[2023-08-27 09:23] LABS: Basophils # 0.1 10^3/uL (0.0-0.1); Eosinophils # 0.3 10^3/uL (0.0-0.8); Eosinophils % 3.4 %; Hematocrit 46.1 % (36-47); Lymphocytes % 25.7 %; Mean Corpuscular HGB Conc 34.1 g/dL (30-55); Mean Corpuscular Hemoglobin 33.8 pg (27-33); Mean Corpuscular Volume 99.1 fl (85-98); Monocytes # 0.8 10^3/uL (0.2-0.9); Monocytes % 10.1 %; Neutrophils % 58.5 %; Nucleated Red Blood Cells % 0 %; Platelet Count 258 10^3/cmm (157-399); Red Blood Count 4.65 10^6/uL (3.85-5.65); Red Cell Distribution Width 13.1 % (12.1-15.1); White Blood Count 7.86 10^3/uL (3.29-11.43)
[2023-08-27 09:42] LABS: D Dimer <= 0.27 ug/mLFEU (0-0.59)
[2023-08-27 10:14] LABS: Alanine Aminotransferase 47 U/L (0-33); Alkaline Phosphatase 61 U/L (35-105); Aspartate Amino Transferase 30 U/L (0-32); Blood Urea Nitrogen 15 mg/dL (8-23); Calcium 10.4 mg/dL (8.5-10.5); Carbon Dioxide 25 mmol/L (22-29); Chloride 99 mmol/L (98-107); Globulin 3.4 g/dL (1.3-4.6); Glomerular Filtration Rate 63.2 mL/min (90-130); Glucose 128 mg/dL (65-115); Osmolality Calculated 284 mOsm/kg (285-295); Sodium 136 mmol/L (136-145); Total Bilirubin 0.4 mg/dL (0.15-1.2); Total Protein 7.4 g/dL (6.6-8.7)
== END 2023-09-11 23:59 | disposition home or self-care (01) ==
PROVIDERS: PCP Registered Nurse; Visit Provider Internal Medicine Medical Oncology
DX: C50.411 Malignant neoplasm of upper-outer quadrant of right female breast (principal); Z17.0 Estrogen receptor positive status [ER+]; Z51.0 Encounter for antineoplastic radiation therapy; Z92.21 Personal history of antineoplastic chemotherapy; I26.99 Other pulmonary embolism without acute cor pulmonale; Z79.01 Long term (current) use of anticoagulants; I82.401 Acute embolism and thrombosis of unspecified deep veins of right lower extremity
CPT/HCPCS: 36415; 80053; 85025; 85378; 99214

== ENCOUNTER 2023-09-11 08:02 | Outpatient (CLI) | payer OTHER, SELFPAY ==
--- NOTE | 2023-09-11 08:30 | CT_ITS ---
WS: [id number] CT CHEST ANGIOGRAPHY WITH REFORMATS HISTORY: shortness of breath TECHNIQUE: Contiguous axial images are obtained through the chest during arterial injection of intrav enous contrast. Images are reconstructed to evaluate the pulmonary arteries. MIP imaging also reviewe d. All CT scans at [facility] use at least one of these dose optimization techniques: automat ed exposure control; mA and/or kV adjustment per patient size (includes targeted exams where dose is matched to clinical indication); or iterative reconstruction. CONTRAST: Omnipaque 350; 100 mL IV. DLP: 845.60 mGy.cm COMPARISON: 05/13/2023 Adequate but limited opacification of the pulmonary arteries. No filling defects are identified. Ther e is no central pulmonary embolism. Beyond the lobar branches the opacification becomes limited. No a ortic aneurysm. Mild enlargement of the LEFT heart chambers. No RIGHT heart strain. No pericardial or pleural effusions. No mediastinal or hilar adenopathy. There are several bilateral pulmonary nodules which were probably also present on the study from 05/13 but better visualized today. These nodules are bilateral and in the periphery of the lungs. Lar gest nodules are approximately 5 mm. Enlarged liver with hepatic steatosis. Prior cholecystectomy. No adrenal mass. No destructive bone l esions. IMPRESSION: 1. Limited opacification of the pulmonary arteries but no pulmonary embolism identified. 2. No mediastinal adenopathy. No pulmonary mass or nodule. 3. Marked hepatic steatosis. 4. Prior cholecystectomy. 5. No pneumonia. There is several small peripheral pulmonary nodules which were also present on 05/13 which are unchanged. Suggest 6-12-month follow-up chest CT.
[2023-09-11] MEDS: iohexol 350 mg/mL 500 mL Btl (per mL) IV (09:41)
--- NOTE | 2023-09-11 14:15 | USCV_ITS ---
Fanny Will Age: 63 Gender: F : 1960 Exam Date: 09/11/2023 08:44 Ordering Phys: Alfonso Orosco MD Technologist: [place] [facility] [facility] [place]: SOB BP: 140 / 81 HR: 82 Rhythm: Sinus Technical Quality: Adequate MEASUREMENTS (Male / Female) Normal Values 2D ECHO LVOT Diameter 2.0 cm LV Ejection Fraction MOD 2C 65.2 % LV Ejection Fraction 2C AL 64.9 % LA Diameter 4.2 cm Aorta at Sinotubular Diameter 2.5 cm M-MODE Aortic Annulus Diameter 2.9 cm LA Ao Ratio MM 1.6 MV E Point Septal Separation 0.3 cm DOPPLER AV Peak Velocity 162.0 cm/s LVOT Peak Velocity 139.0 cm/s AV Area Cont Eq vti 3.3 cm squared AV Area Cont Eq pk 2.7 cm squared MV E' Velocity 8.0 cm/s TR Peak Velocity 96.3 cm/s TR Peak Gradient 3.7 mmHg TV Peak E Velocity 74.0 cm/s Right Atrial Pressure 3.0 mmHg Pulmonary Artery Systolic Pressu 6.7 mmHg PV Peak Velocity 94.0 cm/s FINDINGS Left Ventricle Left ventricle is normal in size. LV systolic function is normal with EF of 60 to 65%. No regional wall motion abnormalities are seen. Right Ventricle Normal in size and function Right Atrium Normal in size Left Atrium Normal in size Mitral Valve Structurally normal mitral valve. Trace mitral regurgitation. Aortic Valve Aortic valve is thickened. No significant stenosis or regurgitation. Tricuspid Valve Mild tricuspid regurgitation. Insufficient TR jet to calculate RVSP. Pulmonic Valve Not well-visualized. Pericardium Normal Aorta Normal in size IVC Appears to be normal CONCLUSIONS LV systolic function is normal with EF of 60-65% Trace mitral regurgitation Mild tricuspid regurgitation Compared to prior echocardiogram from 2022, no significant changes are seen Osmel Mendes MD (Electronically Signed) Final Date: 13 September 2023 18:09 S
== END 2023-09-11 08:03 | disposition home or self-care (01) ==
LOC: RAD 08:02
PROVIDERS: PCP Registered Nurse; Visit Provider Internal Medicine Medical Oncology
DX: R06.02 Shortness of breath (principal); I07.1 Rheumatic tricuspid insufficiency
CPT/HCPCS: 71275; 93306; Q9967

== ENCOUNTER 2023-09-30 07:43 | Oncology outpatient (recurring) (ONCR) | payer OTHER, SELFPAY ==
[2023-09-30 08:07] LABS: Basophils # 0.1 10^3/uL (0.0-0.1); Basophils % 1.2 %; Eosinophils # 0.3 10^3/uL (0.0-0.8); Eosinophils % 3.8 %; Hematocrit 43.9 % (36-47); Lymphocytes % 29.9 %; Mean Corpuscular HGB Conc 34.2 g/dL (30-55); Mean Corpuscular Hemoglobin 33.9 pg (27-33); Mean Corpuscular Volume 99.3 fl (85-98); Mean Platelet Volume 9.8 fL (7.4-10.4); Monocytes # 0.7 10^3/uL (0.2-0.9); Monocytes % 10.4 %; Neutrophils # 3.66 10^3/uL (1.8-7.7); Neutrophils % 54.1 %; Nucleated Red Blood Cells % 0 %; Platelet Count 232 10^3/cmm (157-399); Red Blood Count 4.42 10^6/uL (3.85-5.65); Red Cell Distribution Width 12.6 % (12.1-15.1); White Blood Count 6.76 10^3/uL (3.29-11.43)
[2023-09-30 08:27] LABS: Alanine Aminotransferase 44 U/L (0-33); Albumin Level 3.9 g/dL (3.5-5.2); Alkaline Phosphatase 81 U/L (35-105); Anion Gap 17.2 (5-19); Aspartate Amino Transferase 26 U/L (0-32); Blood Urea Nitrogen 15 mg/dL (8-23); Calcium 9.4 mg/dL (8.5-10.5); Carbon Dioxide 25 mmol/L (22-29); Chloride 101 mmol/L (98-107); Globulin 3.1 g/dL (1.3-4.6); Glomerular Filtration Rate 63.2 mL/min (90-130); Glucose 130 mg/dL (65-115); Osmolality Calculated 291 mOsm/kg (285-295); Potassium 4.2 mmol/L (3.5-5.1); Sodium 139 mmol/L (136-145); Total Bilirubin 0.3 mg/dL (0.15-1.2)
[2023-10-04 09:55] LABS: Methylmalonic Acid 342 nmol/L (87-318)
== END 2023-10-10 23:59 | disposition home or self-care (01) ==
PROVIDERS: Internal Medicine; PCP Registered Nurse; Visit Provider Internal Medicine Medical Oncology
DX: C50.411 Malignant neoplasm of upper-outer quadrant of right female breast (principal); Z17.0 Estrogen receptor positive status [ER+]; Z79.01 Long term (current) use of anticoagulants; M79.662 Pain in left lower leg; Z86.718 Personal history of other venous thrombosis and embolism; M25.531 Pain in right wrist; J02.9 Acute pharyngitis, unspecified; Z79.811 Long term (current) use of aromatase inhibitors
CPT/HCPCS: 36415; 80053; 83921; 85025; 99214

== ENCOUNTER 2023-10-15 13:13 | Outpatient (CLI) | payer OTHER, SELFPAY ==
--- NOTE | 2023-10-15 13:45 | USCV_ITS ---
Fanny Will Age: 63 Gender: F : 1960 Exam Date: 10/15/2023 13:37 Ordering Phys: Reyna Quijano APRN Technologist: RICHARD Exam Location: [facility] – [place] Indication: Tender Lt Lower Leg HISTORY: History of DVT rt leg. Today tender lt leg PROCEDURES: Venous duplex imaging was performed in only the left lower extremity. The following venous structures were evaluated: common femoral vein, profunda vein, proximal portion of the greater saphenous vein, superficial femoral vein, and the popliteal vein. In addition, the posterior tibial and peroneal trunk were evaluated. Serial compression, augmentation maneuvers, and spectral Doppler flow evaluation were performed. FINDINGS: Normal 2-D Doppler and augmentation and compressibility throughout the lower extremity venous structures. Additional imaging through the proximal calf veins also reveals no thrombus. Limited evaluation of the greater saphenous vein is patent with no thrombus. CONCLUSIONS No evidence of left lower extremity DVT. Xavier Mock MD (Electronically Signed) Final Date: 15 October 2023 16:47 S
--- NOTE | 2023-10-15 14:30 | US_ITS ---
WS: [id number] INDICATION: Enlarged RIGHT wrist TECHNIQUE: Ultrasound soft tissue of concern FINDINGS: Ultrasound soft tissue area of concern. Ultrasound performed from the distal wrist to the m id forearm. Normal underlying soft tissue. No suspicious cystic or solid lesions. No acute findings. IMPRESSION: No suspicious findings in the area of concern.
== END 2023-10-15 13:14 | disposition home or self-care (01) ==
LOC: RAD 13:14
PROVIDERS: PCP Registered Nurse; Visit Provider Nurse Practitioner Family
DX: I82.401 Acute embolism and thrombosis of unspecified deep veins of right lower extremity (principal); M79.662 Pain in left lower leg; I82.611 Acute embolism and thrombosis of superficial veins of right upper extremity
CPT/HCPCS: 76882; 93971

== ENCOUNTER 2023-11-05 14:15 | Oncology outpatient (recurring) (ONCR) | payer OTHER, SELFPAY ==
[2023-10-21 12:45] LABS: Add Urine Culture? Yes; Bacteria Urine 1+ /hpf; Bilirubin Urine Neg (Negative); Blood Urine 3+ (Negative); Glucose Urine UA Norm (Normal); Ketones Urine 1+ (Negative); Leukocyte Esterase Urine 1+ (Negative); Nitrate Urine Negative (Negative); Protein Urine Trace (Negative); RBC Urine 0-4 /hpf (0-2); Renal Epithelial Cells Urine 0-4 /hpf; Specific Gravity, Urine 1.005 (1.005-1.030); Squamous Epithelial Cell Urine 0-4 /hpf (0-5); Urine Appearance Hazy (CLEAR); Urine Color Yellow (Yellow); Urobilinogen Urine Norm (Negative); WBC Urine 55-80 /hpf (0-5); pH Urine 7 (5-7)
[2023-11-05 14:13] LABS: Basophils # 0.1 10^3/uL (0.0-0.1); Basophils % 0.9 %; Eosinophils # 0.2 10^3/uL (0.0-0.8); Eosinophils % 2.9 %; Hematocrit 43.9 % (36-47); Lymphocytes # 2.2 10^3/uL (0.8-4.8); Lymphocytes % 33.7 %; Mean Corpuscular HGB Conc 34.2 g/dL (30-55); Mean Corpuscular Hemoglobin 33.9 pg (27-33); Mean Corpuscular Volume 99.1 fl (85-98); Mean Platelet Volume 9.6 fL (7.4-10.4); Monocytes # 0.7 10^3/uL (0.2-0.9); Monocytes % 10.9 %; Neutrophils # 3.38 10^3/uL (1.8-7.7); Neutrophils % 51.1 %; Nucleated Red Blood Cells % 0 %; Platelet Count 254 10^3/cmm (157-399); Red Blood Count 4.43 10^6/uL (3.85-5.65); Red Cell Distribution Width 12.6 % (12.1-15.1); White Blood Count 6.61 10^3/uL (3.29-11.43)
[2023-11-05 14:30] LABS: Alanine Aminotransferase 33 U/L (0-33); Alkaline Phosphatase 83 U/L (35-105); Anion Gap 13.1 (5-19); Aspartate Amino Transferase 26 U/L (0-32); Blood Urea Nitrogen 11 mg/dL (8-23); Calcium 9.8 mg/dL (8.5-10.5); Carbon Dioxide 29 mmol/L (22-29); Chloride 102 mmol/L (98-107); Globulin 2.9 g/dL (1.3-4.6); Glomerular Filtration Rate 72.4 mL/min (90-130); Glucose 117 mg/dL (65-115); Osmolality Calculated 290 mOsm/kg (285-295); Potassium 4.1 mmol/L (3.5-5.1); Sodium 140 mmol/L (136-145); Total Bilirubin 0.4 mg/dL (0.15-1.2); Total Protein 6.9 g/dL (6.6-8.7)
== END 2023-11-10 23:59 | disposition home or self-care (01) ==
PROVIDERS: PCP Registered Nurse; Visit Provider Internal Medicine Medical Oncology
DX: Z53.9 Procedure and treatment not carried out, unspecified reason (principal); C50.411 Malignant neoplasm of upper-outer quadrant of right female breast; M79.662 Pain in left lower leg; I82.401 Acute embolism and thrombosis of unspecified deep veins of right lower extremity; I82.611 Acute embolism and thrombosis of superficial veins of right upper extremity; Z79.899 Other long term (current) drug therapy
CPT/HCPCS: 36415; 80053; 81001; 85025; 87086; 99214

== ENCOUNTER 2024-01-02 08:19 | Oncology outpatient (recurring) (ONCR) | payer OTHER, SELFPAY ==
--- NOTE | 2024-01-02 09:06 | ONCRAD EPV_ITS ---
Radiation Oncology Established Patient Visit Patient: Suman Escobedo [id number] : 1960> Age: 63> Sex: Female> Dictated by: Dr. Flor Grossman Date of Service: 01/02/2024 Referring Physician(s) : Diagnosis: C50.411 - Malignant neoplasm of upper-outer quadrant of right female breast, Diagnosed 04/17/2023 (Active) Radiotherapy to Date: Course: RT Breast 2022, Treatment Site: RtBreast, Ref. ID: [id number], Energy: 15X/6X, Dose/Fx (cGy): 266, #Fx: 16 / 16, Dose Correction (cGy): 0, Total Dose Delivered (cGy): 4,256, Start Date: 04/30/2023, End Date: 05/27/2023, Elapsed Days: 27 Treatment Site: [id number], Ref. ID: [id number], Energy: 15X/6X, Dose/Fx (cGy): 250, #Fx: 4 / 4, Dose Correction (cGy): 0, Total Dose Delivered (cGy): 1,000, Start Date: 05/28/2023, End Date: 05/31/2023, Elapsed Days: 3 Current History: Patient is a 63-year-old lady who underwent radiation chemotherapy and surgery for her right-sided breast cancer. Her last mammogram was in September. She is due for another mammogram in March. She will be visiting with a medical oncologist again in April. Her only complaints today is that she continues to have some fatigue but is becoming less frequent. She also continues to have problems with her feet when she is walked quite a bit they swell and turn red and burn. 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 Current Medications: AmLODIPine Besylate, cholecalciferol, ciprofloxacin HCl, cyclobenzaprine HCl, hydroCHLOROthiazide, levoFLOXacin, lORazepam, pantoprazole Sodium, prochlorperazine Maleate. Allergies: Current Complaints / Review of Systems: . Vital Signs: Performed on 01/02/2024 8:35 AM BMI - 36.066 kg/m2 (high), Height - 68 in, Weight - 237.2 lbs, Temperature - 97.1 f, Pulse - 77 /min, Respiration - 17 /min, O2 Sat - 99 %, Pain - 0, Fatigue - 0 and BP - 121/ 74 mm(hg). Physical Exam: General: Alert and oriented x 3. No acute distress. HEENT: Normocephalic, atraumatic. Extraocular Movements Intact: Pupils Equal, Round, Reactive to light: Sclerae anicteric. . . LUNGS: Respiratory rate is regular nonlabored. HEART: Regular rate and rhythm,. Breast exam: No tenderness was noted. The right breast is more firm to palpation and still mildly hyperpigmented. No masses were noted in either breast. No axillar adenopathy was noted.. ABDOMEN: Soft, nontender, nondistended . The abdomen portion is flatter but the mons area is markedly enlarged. On palpation it is just soft and appears to be lymphedema. EXTREMITIES: No peripheral edema is identified. NEUROLOGIC: Alert and orient x 3. Gait and speech within normal limits. Performance Status: 100 Lab: None pending. Pathology: Primary, c50.411 - malignant neoplasm of upper-outer quadrant of right female breast, Diagnosed 04/17/2023 (active) . Imaging: See HPI Impression: Breast cancer now less than 1 year from completion of treatment Plan: At this point she will be getting her mammograms in March. She will also be following up with her new primary care in mid February. She will see medical oncology in April. At the time of her exam she had asked about the mons area being so much more swollen. This is apparently been like that for the last year or 2. She said initially she lost a substantial amount of weight but then when she gained some back it was in this area. I recommended to her at this point that we go ahead and get a CT of her abdomen and pelvis and if there is no abnormalities on this we can send her to [facility] for evaluation. She was in agreement with this. She will see her primary care in mid February. I did recommend that she visit with medical oncology twice a year and have a breast examination twice a year. Of asked her to pick who she would like to see twice a year for her breast exam and if we need to participate in that she can call and let us know. I will call her with the results of her CT scan once has been completed. I did email her a food plan that will help detoxify the chemotherapy and hopefully improve her neuropathy. Signed by: 01/02/2024 9:05:36 AM <<Signature on File>> Time spent with [id number]: CPT Code: CPT Code:
== END 2024-01-10 23:59 | disposition home or self-care (01) ==
PROVIDERS: PCP Registered Nurse; Visit Provider Internal Medicine Medical Oncology
DX: C50.411 Malignant neoplasm of upper-outer quadrant of right female breast (principal); Z92.3 Personal history of irradiation; G62.0 Drug-induced polyneuropathy; T45.1X5A Adverse effect of antineoplastic and immunosuppressive drugs, initial encounter
CPT/HCPCS: 99213

== ENCOUNTER 2024-01-28 07:41 | Oncology outpatient (recurring) (ONCR) | payer OTHER, SELFPAY ==
--- NOTE | 2024-01-28 09:00 | CTR_ITS ---
PROCEDURE INFORMATION: Exam: CT Abdomen And Pelvis With Contrast Exam date and time: 01/28/2024 9:51 AM Age: 63 years old Clinical indication: Condition or disease; Other: Breast cancer; Prior surgery; Surgery date: 6+ months; Surgery type: RT breast; Additional info: Marked swelling of mons TECHNIQUE: Imaging protocol: Computed tomography of the abdomen and pelvis with contrast. Radiation optimization: All CT scans at this facility use at least one of these dose optimization techniques: automated exposure control; mA and/or kV adjustment per patient size (includes targeted exams where dose is matched to clinical indication); or iterative reconstruction. Contrast material: OMNI 350; Contrast volume: 100 ml; Contrast route: INTRAVENOUS (IV); COMPARISON: CT angio chest PE protcl [id number] 09/11/2023 9:19 AM RADIATION DOSE METRICS: Total DLP (mGy-cm): 878.14 FINDINGS: Lungs: Lung bases are clear. Liver: There is a diffuse decrease in hepatic parenchymal density, consistent with moderate fatty infiltration. There is no focal abnormality within the liver. Gallbladder and bile ducts: Multiple calcified gallstones are present. There is no gallbladder wall thickening or pericholecystic fluid. There is no common bile duct dilation. Pancreas: The pancreas is normal. Spleen: The spleen is normal. Adrenal glands: The adrenal glands are normal. Kidneys and ureters: The kidneys are normal. There is no evidence of hydronephrosis. There is no evidence of renal or ureteral calcifications. Stomach and bowel: Mild diverticulosis is present in the distal colon. There is no evidence of colitis/diverticulitis. There is no evidence of intestinal obstruction. Appendix: A normal appendix is identified. Intraperitoneal space: There is no evidence of free intraperitoneal fluid. Vasculature: The aorta is normal. Lymph nodes: There is no evidence of lymphadenopathy. Urinary bladder: Unremarkable as visualized. Reproductive: Unremarkable as visualized. Bones/joints: The lumbar spine demonstrates moderate degenerative changes at multiple levels. There are mild degenerative changes in both hips. There is no evidence of acute fracture. Soft tissues: There is some soft tissue densities in the subcutaneous fat of the anterior abdominal wall and also 1 in the right gluteal region consistent with subcutaneous injection sites. CT/CT abdomen pelvis w con* [id number] IMPRESSION: 1. Cholelithiasis 2. Fatty liver 3. No metastatic lesions are seen in the abdomen or pelvis COMMENTS: Clinical history says that there is marked swelling of the mons. This region is not included on this examination.
[2024-01-28] MEDS: iohexol 350 mg/mL 500 mL Btl (per mL) PO (09:28)
[2024-01-28 09:45] LABS: Blood Urea Nitrogen 17 mg/dL (8-23); Glomerular Filtration Rate 84.5 mL/min (90-130)
[2024-01-28] MEDS: iohexol 350 mg/mL 500 mL Btl (per mL) IV (10:00)
== END 2024-02-09 23:59 | disposition home or self-care (01) ==
LOC: RAD 01-29 21:43 → ONCMED 02-25 07:35
PROVIDERS: Internal Medicine Medical Oncology; PCP Registered Nurse; Visit Provider Radiology Radiation Oncology
DX: C50.911 Malignant neoplasm of unspecified site of right female breast (principal); K80.20 Calculus of gallbladder without cholecystitis without obstruction; K76.0 Fatty (change of) liver, not elsewhere classified; Z53.9 Procedure and treatment not carried out, unspecified reason
CPT/HCPCS: 74177; 82565; 84520; Q9967

== ENCOUNTER 2024-05-07 07:32 | Oncology outpatient (recurring) (ONCR) | payer OTHER, SELFPAY ==
[2024-05-07 08:44] LABS: Basophils # 0.1 10^3/uL (0.0-0.1); Basophils % 0.8 %; Eosinophils # 0.2 10^3/uL (0.0-0.8); Eosinophils % 2.5 %; Hematocrit 46.3 % (36-47); Lymphocytes # 2.3 10^3/uL (0.8-4.8); Lymphocytes % 29.4 %; Mean Corpuscular HGB Conc 33.7 g/dL (30-55); Mean Corpuscular Hemoglobin 33.3 pg (27-33); Mean Corpuscular Volume 98.7 fl (85-98); Mean Platelet Volume 10.1 fL (7.4-10.4); Monocytes # 0.8 10^3/uL (0.2-0.9); Monocytes % 10.3 %; Neutrophils # 4.38 10^3/uL (1.8-7.7); Neutrophils % 56.5 %; Nucleated Red Blood Cells % 0 %; Platelet Count 244 10^3/cmm (157-399); Red Blood Count 4.69 10^6/uL (3.85-5.65); Red Cell Distribution Width 12.7 % (12.1-15.1); White Blood Count 7.75 10^3/uL (3.29-11.43)
[2024-05-07 09:20] LABS: 25 Hydroxy Vitamin D 37 ng/mL (30-100); Alanine Aminotransferase 31 U/L (0-33); Alkaline Phosphatase 96 U/L (35-105); Anion Gap 16.6 (5-19); Aspartate Amino Transferase 26 U/L (0-32); Blood Urea Nitrogen 18 mg/dL (8-23); Calcium 9.6 mg/dL (8.5-10.5); Carbon Dioxide 27 mmol/L (22-29); Chloride 99 mmol/L (98-107); Creatinine Clr Calc Pharmacy 105.5369; Globulin 3.3 g/dL (1.3-4.6); Glomerular Filtration Rate 84.2 mL/min (90-130); Glucose 121 mg/dL (65-115); Osmolality Calculated 291 mOsm/kg (285-295); Potassium 3.6 mmol/L (3.5-5.1); Sodium 139 mmol/L (136-145); Total Bilirubin 0.4 mg/dL (0.15-1.2); Total Protein 7.3 g/dL (6.6-8.7); Vitamin B12 1884 pg/mL (232-1245)
[2024-05-07 09:34] LABS: Folate Level 8.6 ng/mL (4.8-37.3)
== END 2024-05-11 23:59 | disposition home or self-care (01) ==
PROVIDERS: Nurse Practitioner Family; PCP Registered Nurse; Visit Provider Radiology Radiation Oncology
DX: C50.411 Malignant neoplasm of upper-outer quadrant of right female breast (principal); Z79.899 Other long term (current) drug therapy; Z17.0 Estrogen receptor positive status [ER+]; Z92.21 Personal history of antineoplastic chemotherapy
CPT/HCPCS: 36415; 80053; 82306; 82607; 82746; 85025; 99214

== ENCOUNTER → 2024-09-02 15:48 | Outpatient (BNVA) | payer OTHER, SELFPAY | PROVIDERS: PCP Registered Nurse; Visit Provider Nurse Practitioner Women's Health | DX: Z12.4 Encounter for screening for malignant neoplasm of cervix (principal) | CPT/HCPCS: 76857; 87624 ==

== ENCOUNTER 2024-09-21 10:00 | Outpatient (CLI) | payer OTHER, SELFPAY ==
--- NOTE | 2024-09-21 10:06 | CT_ITS ---
WS: [id number] CT chest w con* [id number] HISTORY: PULMONARY NODULES, history of breast cancer. TECHNIQUE: Axial imaging performed through the thorax. Coronal and sagittal reformats are submitted. All CT scans at [facility] use at least one of these dose optimization techniques: automated exposure control; mA and/or kV adjustment per patient size (includes targeted exams where dose is matched to clinical indication); or iterative reconstruction. CONTRAST: Omnipaque 350; 100 mL IV. DLP: 461.16 mGy.cm COMPARISON: 09/11/2023, 05/13/2023 Lungs and central airway: Lungs are well aerated. Better aeration of both lungs as compared to the prior exams. Reidentified are numerous bilateral and multilobar very tiny pulmonary nodules which measure less than 4 mm. No progression or new nodules identified. Improved aeration in the periphery RIGHT upper lobe since the prior study. Pleura: Normal. No pleural effusion. Heart and pericardium: Normal size heart with no pericardial effusion. Mediastinum and isael: No mediastinum or hilar adenopathy. Vessels: Normal size aortic and pulmonary artery. No coronary artery calcifications. Chest wall and lower neck: No soft tissue masses. Upper abdomen: Hepatic steatosis. Small hiatal hernia. No adrenal mass. Osseous structures: Thoracolumbar scoliosis. Hypertrophic osteophytes in the mid to lower thoracic spine. CT/CT chest w con* [id number] IMPRESSION: 1. No focal areas of consolidation. No pneumonia. 2. Reidentified are numerous bilateral pulmonary nodules all measuring less th an 4 mm. Majority of these nodules appear to been present on prior studies dati ng back to 2022. Recommend additional 12-month chest CT follow-up. 3. No mediastinal or hilar adenopathy. 4. Hepatic steatosis.
[2024-09-21 11:08] LABS: Blood Urea Nitrogen 13 mg/dL (8-23); Glomerular Filtration Rate 72.2 mL/min (90-130)
[2024-09-21] MEDS: iohexol 350 mg/mL 500 mL Btl (per mL) IV (11:11)
== END 2024-09-21 10:01 | disposition home or self-care (01) ==
LOC: RAD 10:02
PROVIDERS: Radiology Diagnostic Radiology; PCP Registered Nurse; Visit Provider Nurse Practitioner Family
DX: R91.8 Other nonspecific abnormal finding of lung field (principal); K76.0 Fatty (change of) liver, not elsewhere classified; K44.9 Diaphragmatic hernia without obstruction or gangrene; M41.85 Other forms of scoliosis, thoracolumbar region; M25.78 Osteophyte, vertebrae; Z85.3 Personal history of malignant neoplasm of breast
CPT/HCPCS: 71260; 82565; 84520

== ENCOUNTER 2024-11-04 07:17 | Oncology outpatient (recurring) (ONCR) | payer OTHER, SELFPAY ==
[2024-11-04 07:57] LABS: Basophils # 0.1 10^3/uL (0.0-0.1); Basophils % 1.3 %; Eosinophils # 0.3 10^3/uL (0.0-0.8); Hematocrit 48.2 % (36-47); Lymphocytes # 2.7 10^3/uL (0.8-4.8); Lymphocytes % 34.7 %; Mean Corpuscular HGB Conc 33.2 g/dL (30-55); Mean Corpuscular Hemoglobin 33.4 pg (27-33); Mean Corpuscular Volume 100.6 fl (85-98); Mean Platelet Volume 10.1 fL (7.4-10.4); Monocytes # 0.9 10^3/uL (0.2-0.9); Neutrophils % 48.6 %; Nucleated Red Blood Cells % 0 %; Platelet Count 238 10^3/cmm (157-399); Red Blood Count 4.79 10^6/uL (3.85-5.65); White Blood Count 7.81 10^3/uL (3.29-11.43)
[2024-11-04 08:33] LABS: Alanine Aminotransferase 37 U/L (0-33); Albumin Level 3.7 g/dL (3.5-5.2); Alkaline Phosphatase 86 U/L (35-105); Anion Gap 14.9 (5-19); Aspartate Amino Transferase 28 U/L (0-32); Blood Urea Nitrogen 17 mg/dL (8-23); Calcium 9.8 mg/dL (8.5-10.5); Carbon Dioxide 26 mmol/L (22-29); Chloride 100 mmol/L (98-107); Creatinine Clr Calc Pharmacy 92.0397; Globulin 3.3 g/dL (1.3-4.6); Glomerular Filtration Rate 72.2 mL/min (90-130); Glucose 123 mg/dL (65-115); Osmolality Calculated 287 mOsm/kg (285-295); Potassium 3.9 mmol/L (3.5-5.1); Sodium 137 mmol/L (136-145); Total Bilirubin 0.5 mg/dL (0.15-1.2)
[2024-11-04 08:52] LABS: Folate Level 8.8 ng/mL (4.8-37.3)
[2024-11-04 10:21] LABS: Vitamin B12 > 2000 pg/mL (232-1245)
== END 2024-11-09 23:59 | disposition home or self-care (01) ==
PROVIDERS: PCP Registered Nurse; Visit Provider Internal Medicine
DX: C50.411 Malignant neoplasm of upper-outer quadrant of right female breast (principal); R31.9 Hematuria, unspecified; Z17.0 Estrogen receptor positive status [ER+]; R05.3 Chronic cough; R91.8 Other nonspecific abnormal finding of lung field; Z92.3 Personal history of irradiation; Z79.811 Long term (current) use of aromatase inhibitors
CPT/HCPCS: 36415; 80053; 82607; 82746; 85025; 99213

== ENCOUNTER 2025-02-03 12:00 | Oncology outpatient (recurring) (ONCR) | payer OTHER, SELFPAY ==
[2025-02-03 12:06] LABS: Basophils # 0.1 10^3/uL (0.0-0.1); Basophils % 1.1 %; Eosinophils # 0.2 10^3/uL (0.0-0.8); Eosinophils % 2.2 %; Hematocrit 46.4 % (36-47); Lymphocytes # 2.8 10^3/uL (0.8-4.8); Lymphocytes % 36.4 %; Mean Corpuscular HGB Conc 34.3 g/dL (30-55); Mean Corpuscular Hemoglobin 33.5 pg (27-33); Mean Corpuscular Volume 97.9 fl (85-98); Mean Platelet Volume 9.8 fL (7.4-10.4); Monocytes # 0.7 10^3/uL (0.2-0.9); Monocytes % 9.1 %; Neutrophils # 3.86 10^3/uL (1.8-7.7); Neutrophils % 50.8 %; Nucleated Red Blood Cells % 0 %; Platelet Count 240 10^3/cmm (157-399); Red Blood Count 4.74 10^6/uL (3.85-5.65); Red Cell Distribution Width 12.9 % (12.1-15.1)
[2025-02-03 12:23] LABS: D Dimer <= 0.27 ug/mLFEU (0-0.59)
[2025-02-03 12:27] LABS: Alanine Aminotransferase 28 U/L (0-33); Albumin Level 3.9 g/dL (3.5-5.2); Alkaline Phosphatase 94 U/L (35-105); Aspartate Amino Transferase 26 U/L (0-32); Blood Urea Nitrogen 13 mg/dL (8-23); Calcium 9.9 mg/dL (8.5-10.5); Carbon Dioxide 24 mmol/L (22-29); Chloride 100 mmol/L (98-107); Globulin 3.7 g/dL (1.3-4.6); Glomerular Filtration Rate 72.2 mL/min (90-130); Glucose 119 mg/dL (65-115); Osmolality Calculated 287 mOsm/kg (285-295); Sodium 138 mmol/L (136-145); Total Bilirubin 0.5 mg/dL (0.15-1.2); Total Protein 7.6 g/dL (6.6-8.7)
[2025-02-03 12:30] LABS: Anion Gap 17.9 (5-19); Lactate Dehydrogenase 200 U/L (135-214); Potassium 3.9 mmol/L (3.5-5.1)
== END 2025-02-08 23:59 | disposition home or self-care (01) ==
PROVIDERS: PCP Family Medicine; Visit Provider Internal Medicine
DX: Z53.9 Procedure and treatment not carried out, unspecified reason; C50.411 Malignant neoplasm of upper-outer quadrant of right female breast; Z17.0 Estrogen receptor positive status [ER+]; R91.1 Solitary pulmonary nodule; I82.401 Acute embolism and thrombosis of unspecified deep veins of right lower extremity; I26.99 Other pulmonary embolism without acute cor pulmonale; L98.9 Disorder of the skin and subcutaneous tissue, unspecified; Z79.01 Long term (current) use of anticoagulants; Z92.3 Personal history of irradiation; Z92.21 Personal history of antineoplastic chemotherapy
CPT/HCPCS: 36415; 80053; 83615; 85025; 85378; 94010; 94726; 94729; 99214

== ENCOUNTER 2025-02-25 10:03 | Oncology outpatient (recurring) (ONCR) | payer MEDICARE, OTHER, SELFPAY ==
--- NOTE | 2025-02-25 10:30 | CT_ITS ---
WS: [id number] CT CHEST TECHNIQUE: Contrast enhanced CT of the chest with coronal and sagittal reformatted images. CLINICAL INFORMATION: surveillance COMPARISON: 09/21/2024 DLP: 457.[address] scans at [facility] use at least one of these dose optimization techniques: automated exposure control; mA and/or kV adjustment per patient size (includes targeted exams where dose is matched to clinical indication); or iterative reconstruction. FINDINGS: Again seen are numerous subcentimeter bilateral pulmonary nodules unchanged compared to the prior examination measuring less than 4 mm. No new suspicious pulmonary parenchymal abnormalities. Recommend 12-month follow-up. No mediastinal or hilar lymphadenopathy. Normal caliber thoracic aorta. Small esophageal hiatal hernia. Fatty liver. No axillary lymphadenopathy. Thoracolumbar scoliosis and hypertrophic changes thoracic spine. Cholelithiasis. Small calcified LEFT thyroid nodule. CT/CT chest w con* [id number] IMPRESSION: 1. Stable bilateral subcentimeter pulmonary nodules measuring less than 4 mm. No new suspicious pulmonary parenchymal abnormalities. Recommend 12-month follo w-up. 2. No mediastinal or hilar lymphadenopathy. 3. Fatty liver. 4. Cholelithiasis. 5. Small esophageal hiatal hernia. 6. No other significant changes compared to previous.
[2025-02-25] MEDS: iohexol 350 mg/mL 500 mL Btl (per mL) IV (10:48)
== END 2025-03-11 23:59 | disposition home or self-care (01) ==
PROVIDERS: PCP Family Medicine; Visit Provider Internal Medicine
DX: C50.411 Malignant neoplasm of upper-outer quadrant of right female breast (principal); R31.9 Hematuria, unspecified; Z17.0 Estrogen receptor positive status [ER+]; R05.3 Chronic cough; R91.8 Other nonspecific abnormal finding of lung field; Z92.3 Personal history of irradiation; Z79.811 Long term (current) use of aromatase inhibitors; I82.401 Acute embolism and thrombosis of unspecified deep veins of right lower extremity; I82.611 Acute embolism and thrombosis of superficial veins of right upper extremity; I26.99 Other pulmonary embolism without acute cor pulmonale
CPT/HCPCS: 71260

== ENCOUNTER 2025-05-05 11:00 | Oncology outpatient (recurring) (ONCR) | payer MEDICARE, OTHER, SELFPAY ==
[2025-05-05 11:33] LABS: Hematocrit 46.2 % (36-47); Hemoglobin 15.70 g/dL (11.27-16.99); Mean Corpuscular HGB Conc 34.0 g/dL (30-55); Mean Corpuscular Hemoglobin 32.6 pg (27-33); Mean Corpuscular Volume 96.0 fl (85-98); Nucleated Red Blood Cells % 0 %; Platelet Count 255 10^3/cmm (157-399); Red Blood Count 4.81 10^6/uL (3.85-5.65); White Blood Count 8.52 10^3/uL (3.29-11.43)
[2025-05-05 11:55] LABS: Alanine Aminotransferase 27 U/L (0-33); Albumin Level 4.0 g/dL (3.5-5.2); Alkaline Phosphatase 103 U/L (35-105); Anion Gap 12.9 (5-19); Aspartate Amino Transferase 32 U/L (0-32); Blood Urea Nitrogen 14 mg/dL (8-23); Calcium 10.1 mg/dL (8.5-10.5); Carbon Dioxide 27 mmol/L (22-29); Chloride 101 mmol/L (98-107); Creatinine Clr Calc Pharmacy 88.8834; Globulin 3.9 g/dL (1.3-4.6); Glucose 116 mg/dL (65-115); Osmolality Calculated 285 mOsm/kg (285-295); Potassium 3.9 mmol/L (3.5-5.1); Sodium 137 mmol/L (136-145); Total Protein 7.9 g/dL (6.6-8.7)
[2025-05-05 12:09] LABS: Vitamin B12 1057 pg/mL (232-1245)
== END 2025-05-11 23:59 | disposition home or self-care (01) ==
PROVIDERS: Nurse Practitioner Family; PCP Family Medicine; Visit Provider Internal Medicine
DX: C50.411 Malignant neoplasm of upper-outer quadrant of right female breast (principal); Z17.0 Estrogen receptor positive status [ER+]; I82.401 Acute embolism and thrombosis of unspecified deep veins of right lower extremity; E53.8 Deficiency of other specified B group vitamins; L98.8 Other specified disorders of the skin and subcutaneous tissue; Z92.3 Personal history of irradiation; Z79.899 Other long term (current) drug therapy; Z79.01 Long term (current) use of anticoagulants
CPT/HCPCS: 36415; 80053; 82607; 83921; 85025; 85378; 99214

== ENCOUNTER → 2025-05-10 07:50 | Outpatient (BNVA) | payer MEDICARE, OTHER, SELFPAY | PROVIDERS: PCP Family Medicine; Visit Provider Dermatology | DX: L82.1 Other seborrheic keratosis (principal); S90.111A Contusion of right great toe without damage to nail, initial encounter; X58.XXXA Exposure to other specified factors, initial encounter; L81.4 Other melanin hyperpigmentation; Z92.3 Personal history of irradiation; Z80.8 Family history of malignant neoplasm of other organs or systems; L57.0 Actinic keratosis | CPT/HCPCS: 17000; 99203 ==

== ENCOUNTER → 2025-06-02 13:44 | Outpatient (BNVA) | payer MEDICARE, OTHER, SELFPAY | PROVIDERS: PCP Family Medicine; Referring Provider Nurse Practitioner Family; Visit Provider Internal Medicine Endocrinology, Diabetes & Metabolism | DX: E04.1 Nontoxic single thyroid nodule (principal); I26.99 Other pulmonary embolism without acute cor pulmonale | CPT/HCPCS: 99214 ==

== ENCOUNTER 2025-08-11 11:18 | Oncology outpatient (recurring) (ONCR) | payer MEDICARE, OTHER, SELFPAY ==
[2025-08-11 11:41] LABS: Hematocrit 46.6 % (36-47); Hemoglobin 15.80 g/dL (11.27-16.99); Mean Corpuscular HGB Conc 33.9 g/dL (30-55); Mean Corpuscular Hemoglobin 32.6 pg (27-33); Mean Corpuscular Volume 96.3 fl (85-98); Nucleated Red Blood Cells % 0 %; Platelet Count 253 10^3/cmm (157-399); Red Blood Count 4.84 10^6/uL (3.85-5.65); White Blood Count 8.44 10^3/uL (3.29-11.43)
[2025-08-11 12:03] LABS: Alanine Aminotransferase 29 U/L (0-33); Albumin Level 4.0 g/dL (3.5-5.2); Alkaline Phosphatase 105 U/L (35-105); Anion Gap 15.4 (5-19); Aspartate Amino Transferase 28 U/L (0-32); Blood Urea Nitrogen 11 mg/dL (8-23); Calcium 10.2 mg/dL (8.5-10.5); Carbon Dioxide 28 mmol/L (22-29); Chloride 102 mmol/L (98-107); Globulin 3.3 g/dL (1.3-4.6); Glucose 116 mg/dL (65-115); Osmolality Calculated 292 mOsm/kg (285-295); Potassium 4.4 mmol/L (3.5-5.1); Sodium 141 mmol/L (136-145); Total Protein 7.3 g/dL (6.6-8.7)
== END 2025-08-11 23:59 | disposition home or self-care (01) ==
PROVIDERS: Nurse Practitioner Family; PCP Family Medicine; Visit Provider Internal Medicine
DX: Z08 Encounter for follow-up examination after completed treatment for malignant neoplasm (principal); Z85.3 Personal history of malignant neoplasm of breast; L98.8 Other specified disorders of the skin and subcutaneous tissue; Z92.3 Personal history of irradiation; Z79.899 Other long term (current) drug therapy; Z79.01 Long term (current) use of anticoagulants
CPT/HCPCS: 80053; 85025; 99214